=== PATIENT | female | born 1945 | race Caucasian/White ===

== ENCOUNTER 2019-11-05 08:07 | Outpatient (CLI) | payer MEDICARE, SELFPAY ==
[2019-11-05 08:36] LABS: Hematocrit 43.9 % (37.0-47.0); Hemoglobin 14.5 g/dL (12.0-15.0); Mean Corpuscular Hemoglobin 29.3 pg (26-34); Mean Corpuscular Volume 88.7 fl (80-100); Mean Platelet Volume 9.2 fl (7.4-10.4); Platelet Count Result 286 k/mm3 (150-375); Red Blood Count 4.95 M/mm3 (4.2-5.4); Red Cell Distribution Width 12.8 % (11.5-14.5); White Blood Count 3.4 K/mm3 (4.5-10.0)
[2019-11-05 09:44] LABS: Alanine Aminotransferase 17 U/L (4-35); Albumin Level 4.3 g/dL (3.5-5.1); Alkaline Phosphatase 123 U/L (38-126); Anion Gap 11.4 mmol/L (7-16); Aspartate Amino Transferase 21 U/L (14-36); Bilirubin,Total 0.5 mg/dL (0.2-1.3); Blood Urea Nitrogen 17 mg/dL (7-17); Calcium 9.3 mg/dL (8.4-10.2); Carbon Dioxide 26 mmol/L (22-30); Chloride 106 mmol/L (98-107); Cholesterol 218 mg/dL (0-200); Estimated Glomerular Filt Rate > 60; Glucose 117 mg/dL (65-105); HDL Direct 57 mg/dL; Magnesium 2.1 mg/dL (1.6-2.3); Potassium 4.4 mmol/L (3.4-5.0); Sodium 139 mmol/L (137-145); Triglycerides 79 mg/dL (<150)
[2019-11-05 09:55] LABS: LDL Cholesterol Direct 130 mg/dL
[2019-11-05 10:01] LABS: Free T4 Free Thyroxine 1.06 ng/mL (0.78-2.19)
[2019-11-05 10:51] LABS: Folic Acid 7.2 ng/mL (2.76->20)
[2019-11-08 14:40] LABS: Mitochondrial (M2) Ab (IgG) <=20.0 U (<=20.0)
== END 2019-11-05 08:08 | disposition home or self-care (01) ==
LOC: ANHLAB 08:11
PROVIDERS: PCP Internal Medicine; Visit Provider Internal Medicine
DX: R74.8 Abnormal levels of other serum enzymes (principal); R53.83 Other fatigue; I10 Essential (primary) hypertension; E78.00 Pure hypercholesterolemia, unspecified; E03.9 Hypothyroidism, unspecified
CPT/HCPCS: 36415; 80053; 80061; 82607; 82746; 83520; 83735; 84439; 84443; 85027

== ENCOUNTER 2020-05-03 08:56 | Outpatient (CLI) | payer MEDICARE, SELFPAY ==
--- NOTE | ~2020-05-03 | MM_ITS ---
EXAMINATION: MM screening roro BI w chhaya HISTORY: Screening TECHNIQUE: Craniocaudal and mediolateral oblique 3-D tomosynthesis images were obtained and synthetic 2-D images were generated. CAD analysis was submitted and interpreted. COMPARISON: Comparison to multiple prior studies sequentially, with oldest reviewed study dated 02/07. BREAST PARENCHYMAL COMPOSITION: There are scattered areas of fibroglandular density. FINDINGS: There is no evidence of suspicious mass, calcification, or architectural distortion to sugg est malignancy in either breast. There has been no suspicious interval change. IMPRESSION: 1. No mammographic evidence of malignancy. 2. Recommend routine screening mammography in one year. BI-RADS Category 1: Negative Reviewed, dictated and finalized at location A. 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
== END 2020-05-03 08:57 | disposition home or self-care (01) ==
LOC: ANHIMG 09:01
PROVIDERS: PCP Internal Medicine; Visit Provider Obstetrics & Gynecology
DX: Z12.31 Encounter for screening mammogram for malignant neoplasm of breast (principal)
CPT/HCPCS: 77063; 77067

== ENCOUNTER → 2020-08-10 10:21 | Outpatient (CLI) | payer MEDICARE, SELFPAY ==
--- NOTE | ~2020-08-10 | DEXA_ITS ---
Bone Density Report Name: Chanel Márqeuz Age: 75 Sex: Female Ethnicity: White Date of : 1945 Indication: osteopenia; hyperparathyroidism; parental hip fracture; height loss; hysterectomy; postmenopausal Referring Provider: Gita Tran Study: Bone densitometry was performed. Exam Date: August 10, 2020 Accession number: [id number] Bone Density: Region BMD T-score Z-score Classification AP Spine (L1-L4) 0.977 -0.6 1.8 Normal Femoral Neck (Left) 0.822 -0.2 1.8 Normal Total Hip (Left) 0.902 -0.3 1.5 Normal Femoral Neck (Right) 0.710 -1.2 0.8 Osteopenia Total Hip (Right) 0.804 -1.1 0.7 Osteopenia Total Hip Mean 0.853 -0.7 1.1 Normal World Health Organization criteria for BMD impression classify patients as: Normal (T-score at or above -1.0), Osteopenia (T-score between -1.0 and -2.5), or Osteoporosis (T-score at or below -2.5). 10-year Fracture Risk(1): Major Osteoporotic Fracture 15% Hip Fracture 6.3% Reported Risk Factors: [place] (), Neck BMD=0.710, BMI=39.4, parental fracture (1) FRAX(R) Version 3.08. Fracture probability calculated for an untreated patient. Fracture probability may be lower if the patient has received treatment. Previous Exams: Region Exam Age BMD T-score BMD Change BMD Change Date g/cm2 vs Baseline vs Previous AP Spine(L1-L4) 08/10/2020 75 0.977 -0.6 -0.009 -0.039* 05/07/2018 72 1.015 -0.3 0.030 0.064 11/23/2009 64 0.952 -0.9 -0.034* -0.034* 07/06/2004 59 0.985 -0.6 Total Hip(Left) 08/10/2020 75 0.902 -0.3 -0.106 -0.027 05/07/2018 72 0.928 -0.1 -0.080 -0.004 11/23/2009 64 0.933 -0.1 -0.075* -0.075* 07/06/2004 59 1.008 0.5 Total Hip(Right) 08/10/2020 75 0.804 -1.1 -0.117 -0.002 05/07/2018 72 0.805 -1.1 -0.115 -0.046 11/23/2009 64 0.851 -0.7 -0.069* -0.069* 07/06/2004 59 0.920 -0.2 *Denotes significance at 95% confidence level, LSC for AP Spine = 0.022 g/cm2, LSC for Total Hip = 0.027 g/cm2 Clinical Information Provided by Patient: Parent has had a hip fracture Has used the following medications: Vitamin D, Calcium Has the following medical conditions: Hyperparathyroidism, Hysterectomy Patient maximum height was 62 Menopause Age: 59 No regular weight bearing exercise Drinks caffeinated beverages Onset of menses at age 11 Number of children 0
== END ==
PROVIDERS: PCP Internal Medicine; Visit Provider Obstetrics & Gynecology
DX: Z78.0 Asymptomatic menopausal state (principal); M85.851 Other specified disorders of bone density and structure, right thigh
CPT/HCPCS: 77080

== ENCOUNTER 2020-12-16 09:42 | Emergency (ER) | payer OTHER, MEDICARE, SELFPAY ==
--- NOTE | ~2020-12-16 | XR_ITS ---
EXAMINATION: XR wrist LT min 3V, XR forearm LT 2V EXAM DATE: 12/16/2020 10:08 INDICATION: Initial encounter following injury, with pain of the left wrist, forearm. TECHNIQUE: Left forearm frontal and lateral projections obtained and reviewed. 3 projections of the left wrist. There are no prior studies for comparison. FINDINGS: There is an acute closed posttraumatic comminuted fracture through the left radial distal metaphysis extending into the distal radial ulnar joint and the radiocarpal joint. There is posterior angulation and displacement. Carpal bones are unremarkable. 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 IMPRESSION: 1. Acute left radial distal metaphyseal comminuted intra-articular fractures. Reviewed, dictated and finalized at location A. IMPRESSION: 1. Acute left radial distal metaphyseal comminuted intra-articular fractures.
--- NOTE | ~2020-12-16 | XR_ITS ---
EXAMINATION: XR wrist LT 2V INDICATION: Left radius fracture post reduction TECHNIQUE: Two views of the left wrist are obtained. COMPARISON: 1004 hours FINDINGS: The previously described comminuted intra-articular fracture at the distal radius has been reduced. Alignment is near-anatomic. A splint has been applied. There is moderate osteoarthritis of t he triscaphe and first carpometacarpal joints. IMPRESSION: 1. Reduced and splinted comminuted intra-articular fracture of the distal radius Reviewed, dictated and finalized at location B. IMPRESSION: 1. Reduced and splinted comminuted intra-articular fracture of the distal radiu s
[2020-12-16 09:50] VITALS: BP 118/73; PULSE 73; RESP 14; TEMP 35.8; O2SAT 99
[2020-12-16] MEDS: MORPHINE SULFATE (*CRX) 4 MG/ML INJ IV PUSH (12:37)
--- NOTE | 2020-12-16 13:19 | ED.UPPEXIN ---
HPI - Extremity Injury (Upper) General Chief Complaint: Extremity Injury, Upper Stated Complaint: fall with wrist injury Time Seen by Provider: 12/16/20 11:58 History of Present Illness HPI narrative: Patient is 75-year-old female who presents ER with left wrist injury. 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 She then was getting off a chair and fell backwards onto outstretched arm. Sudden onset pain and deformity to the distal wrist. No numbness or tingling. She did not strike her head or lose consciousness. She is not on any blood thinners. Related Data Home Medications Medication Instructions Recorded Confirmed ascorbate calcium (vitamin C) 500 500 mg PO DAILY 11/03/19 07/01/20 mg tablet aspirin 81 mg tablet,delayed 81 mg PO DAILY 11/03/19 07/01/20 release cholecalciferol (vitamin D3) 25 25 mcg PO DAILY 11/03/19 mcg (1,000 unit) capsule cinnamon bark 500 mg capsule 2,000 mg PO DAILY cap 11/03/19 07/01/20 esomeprazole magnesium 40 mg 40 mg PO DAILY 11/03/19 07/01/20 capsule,delayed release omega-3 fatty acids 1,000 mg 1,000 mg PO DAILY 11/03/19 capsule vitamin E (dl, acetate) 180 mg 450 mg PO DAILY 11/03/19 07/01/20 (400 unit) capsule triamcinolone acetonide 0.1 % 1 applic TOPICAL BID 07/01/20 07/01/20 topical cream turmeric 400 mg capsule 1,000 mg PO DAILY cap 07/01/20 07/01/20 Allergies Allergy/AdvReac Type Severity Reaction Status Date / Time ANESTHESIA AdvReac Severe NAUSEA Uncoded 12/16/20 09:55 VOMITING, VITAL SIGNS DROP Review of Systems Review of Systems: All systems reviewed & are unremarkable except as noted in HPI and below Gastrointestinal: Gastrointestinal: Denies nausea and Denies vomiting Musculoskeletal: Musculoskeletal: Reports arthralgias, Reports joint swelling and Reports muscle cramps Neurologic: Denies syncope, Denies headache(s), Denies focal weakness and Denies numbness PMFSH Past Medical History Medical History (Updated 12/16/20 @ 14:40 by Gopi Fishman MD) Diverticulitis Essential (primary) hypertension Hypothyroidism Mitral valve prolapse Surgical History Surgical History (Updated 12/16/20 @ 13:21 by Gopi Fishman MD) History of arthroscopy of right knee History of hysterectomy History of repair of ACL History of tonsillectomy Family History Family History Father Acute myocardial infarction, Onset Age: 63 Patient's father is Grandparent Acute myocardial infarction, Onset Age: 74 Family history of malignant neoplasm of breast, Onset Age: 69 Mother Cerebrovascular accident, Onset Age: 90 Patient's mother is Sibling Acute myocardial infarction Hypertension Patient's sister is in good health Social History Social History Smoking status: Never smoker Second hand tobacco smoke exposure: No Alcohol intake: never Substance use: never Exam Narrative: GENERAL: Well-appearing, well-nourished, and in no acute distress. HEAD: Normocephalic, atraumatic. CHEST: Clear to auscultation. No respiratory distress. HEART: Regular rate and rhythm. Normal peripheral pulses. EXTREMITIES: Deformity left wrist with palpable pulse and neurovascular intact. No tenderness over the elbow. SKIN: Warm, dry, no rash. NEURO: No focal deficits. Alert and oriented x3. PSYCH: Normal mood and affect. Course Course Emergency Course: Discussed the case with Dr. Yoon. He request BMP and CBC as well as EKG for preoperative clearance. He will see her in his clinic on Saturday. She should call at 8:30 AM. Patient be placed in a sling. She is aware of diagnosis and treatment plan. Vital Signs Vital signs: Vital Signs Temperature 96.5 F L 12/16/20 09:50 Pulse Rate 73 12/16/20 09:50 Respiratory Rate 14 12/16/20 09
--- NOTE | 2020-12-16 13:42 | ECG_ITS ---
Measurements Intervals [place] Rate: 66 P: 57 VT: 160 QRS: 29 QRSD: 99 T: 55 QT: 426 QTc: 447 Interpretive Statements SINUS RHYTHM POSSIBLE LEFT ATRIAL ENLARGEMENT CONSIDER INFERIOR INFARCT, AGE INDETERMINATE BASELINE ARTIFACT- I, II, III, AVR, AVL, AVF, V3-V4 ABNORMAL ECG Electronically Signed On 12-16-2020 19:03:46 CDT by Les Odom D.O.
[2020-12-16 14:00] VITALS: BP 187/90; PULSE 68; RESP 18; O2SAT 100
[2020-12-16 15:15] VITALS: BP 182/87; PULSE 65; RESP 16; O2SAT 100
[2020-12-16 15:24] LABS: Basophils Percent Auto 0.3 % (0.2-1.2); Eosinophils Percent Auto 0.5 % (0-4.4); Hematocrit 44.5 % (37.0-47.0); Hemoglobin 14.6 g/dL (12.0-15.0); Immature Granulocyte Absolute 0.03 K/mm3 (0.00-0.031); Immature Granulocyte Percent A 0.3 % (0-0.5); Lymphocytes Absolute Auto 0.92 K/mm3 (0.9-3.2); Lymphocytes Percent Auto 10.5 % (18.3-44.2); Mean Corpuscular HGB Conc 32.8 g/dl (32-36); Mean Corpuscular Hemoglobin 29.7 pg (26-34); Mean Corpuscular Volume 90.6 fl (80-100); Mean Platelet Volume 9.3 fl (7.4-10.4); Monocytes Absolute Auto 0.6 K/mm3 (0.1-0.6); Monocytes Percent Auto 6.4 % (2.6-8.5); Neutrophils Absolute Auto 7.2 K/mm3 (1.3-6.7); Platelet Count Result 293 k/mm3 (150-375); Red Blood Count 4.91 M/mm3 (4.2-5.4); Red Cell Distribution Width 13.2 % (11.5-14.5); White Blood Count 8.8 K/mm3 (4.5-10.0)
[2020-12-16 15:43] LABS: Anion Gap 4 mmol/L (8-16); Blood Urea Nitrogen 16 mg/dL (7-17); Calcium 9.5 mg/dL (8.4-10.2); Carbon Dioxide 24 mmol/L (22-30); Chloride 109 mmol/L (98-107); Estimated CRCL calculation 83 ml/min; Estimated Glomerular Filt Rate > 60; Glucose 125 mg/dL (65-110); Potassium 4.3 mmol/L (3.4-5.0); Sodium 137 mmol/L (137-145)
== END 2020-12-16 15:25 | disposition home or self-care (01) ==
PROVIDERS: Emergency Provider Emergency Medicine; PCP Internal Medicine
DX: S52.572A Other intraarticular fracture of lower end of left radius, initial encounter for closed fracture (principal); Z79.82 Long term (current) use of aspirin; I10 Essential (primary) hypertension; E03.9 Hypothyroidism, unspecified; I34.1 Nonrheumatic mitral (valve) prolapse; W07.XXXA Fall from chair, initial encounter
CPT/HCPCS: 25605; 36415; 73090; 73100; 73110; 80048; 85025; 93005; 96374; 99285; A4565; J2270

== ENCOUNTER 2020-12-21 01:21 | Day surgery (SDC) | payer OTHER, SELFPAY ==
[2020-12-19 11:03] VITALS: BMI 36.6
[2020-12-21] VITALS (10 sets, daily range): BP systolic 110–173; BP diastolic 61–88; PULSE 61–81; RESP 14–20; TEMP 36.3–36.6; O2SAT 94–100
--- NOTE | ~2020-12-21 | XR_ITS ---
EXAMINATION: XR surgery orthopedic DATE: 12/21/2020 15:15 INDICATION: ORIF left wrist fracture TECHNIQUE: 11 fluoroscopic images of the left wrist were obtained during procedure performed by Dr. Max herbert. Radiologist was not present for the imaging or procedure. The amount of fluoroscopy time used during this procedure was 3.4 minutes. COMPARISON: 12/16/2020 FINDINGS: Comminuted intra-articular fracture of the distal left radius with dorsal impaction on the initial im ages. There is some widening of the wrist and midcarpal joint space on the initial images suggesting it was obtained with traction. On the subsequent images the fracture is been reduced to near-anatomic alignment with volar T plate and screw fixation. No significant fracture gap or incongruity with 13 degrees dorsal tilt of the distal articular surface post fixation. No other fractures identified. Ost eoarthritis, moderate at the first carpometacarpal and mild at the triscaphe joint. IMPRESSION: 1. Near-anatomic alignment post open reduction internal fixation of a comminuted intra-articular frac ture of the distal left radius. Reviewed, dictated and finalized at location A. IMPRESSION: 1. Near-anatomic alignment post open reduction internal fixation of a comminute d intra-articular fracture of the distal left radius.
--- NOTE | 2020-12-21 08:25 | PM.IMHP ---
H&P: HPI History of Present Illness Date/Time: 12/21/20 08:25 75-year-old female patient who presents today for ORIF her left distal radius fracture. Patient fell at work on 12/16/2020. She was standing on a chair to reach the top of his safe and when she went to step down her foot got caught causing her to fall. She fell on an outstretched left hand. She had immediate pain in the left wrist. She was taken to the emergency room. She was found have comminuted three-part to the left distal radius fracture. She was seen in the office on 12/19. X-rays reviewed. Patient did undergo closed reduction at the ER which did have some improvement of the overall displacement. However there was still significant displacement as well as comminution. After reviewing x-rays Dr. Yoon recommended ORIF of the left distal radius. Patient agrees and presents today for that. Chief Complaint: left distal radius fracture Review of Systems Review of Systems: All systems reviewed & are unremarkable except as noted in HPI and below PMFSH Past Medical History Medical History Diverticulitis Essential (primary) hypertension Hypothyroidism Mitral valve prolapse Surgical History Surgical History History of arthroscopy of right knee History of hysterectomy History of repair of ACL History of tonsillectomy Family History Family History Father Acute myocardial infarction, Onset Age: 63 Patient's father is Grandparent Acute myocardial infarction, Onset Age: 74 Family history of malignant neoplasm of breast, Onset Age: 69 Mother Cerebrovascular accident, Onset Age: 90 Patient's mother is Sibling Acute myocardial infarction Hypertension Patient's sister is in good health Social History Social History Smoking status: Former smoker Second hand tobacco smoke exposure: No Alcohol intake: never Substance use: never Substance use type: does not use Living arrangements: alone Spiritual care concerns: No Meds Home Medications and Allergies Home Medications Medication Instructions Recorded Confirmed Type ascorbate calcium (vitamin C) 500 500 mg PO DAILY 11/03/19 12/19/20 History mg tablet aspirin 81 mg tablet,delayed 81 mg PO DAILY 11/03/19 12/19/20 History release cholecalciferol (vitamin D3) 25 25 mcg PO DAILY 11/03/19 12/19/20 History mcg (1,000 unit) capsule cinnamon bark 500 mg capsule 2,000 mg PO DAILY cap 11/03/19 12/19/20 History esomeprazole magnesium 40 mg 40 mg PO DAILY 11/03/19 12/19/20 History capsule,delayed release vitamin E (dl, acetate) 180 mg 450 mg PO DAILY 11/03/19 12/19/20 History (400 unit) capsule levothyroxine 25 mcg tablet 25 mcg PO DAILY #30 tablet 07/01/20 12/19/20 Rx turmeric 400 mg capsule 1,000 mg PO DAILY cap 07/01/20 12/19/20 History hydrocodone-acetaminophen 1 tablet PO Q6H PRN #20 tablet 12/16/20 Rx hydrocodone-acetaminophen 1 tablet PO Q6H PRN #20 tablet 12/16/20 12/19/20 Rx For-Til B12 3 tab-cap DAILY 12/19/20 12/19/20 History Ligaplex 2 tab-cap DAILY 12/19/20 12/19/20 History React-Mag-K+ 1 tab-cap DAILY 12/19/20 12/19/20 History furosemide 40 mg PO QAM PRN 12/19/20 12/19/20 History Allergies Allergy/AdvReac Type Severity Reaction Status Date / Time No Known Allergies Allergy Verified 12/19/20 10:55 Exam Narrative: 75-year-old female alert pleasant. She is 5 ft 1 in 201 lb. Fingers are a bit swollen in the left hand. Her splint is comfortable. She reports no numbness or tingling in the fingers. She has normal capillary refill. No tenderness at the elbow or shoulder. Resp: Auscultation: clear to auscultation bilaterally Cardio: Rate: regular rate Rhythm: regular rhythm Assessment
--- NOTE | 2020-12-21 11:28 | WPDANESEPPF ---
Anes - Initial Pre Proc Eval Procedure: Operation Date: 12/21/20 13:00 Proposed Procedures p Open Reduction Internal Fixation Left Distal Radius Fracture - Freddy Yoon MD Date/Time: 12/21/20 11:28 Surgeon: Freddy Yoon MD Pre Op Diagnosis: Left Distal Radius Fx Patient Data Age: 75 Gender: F Height: 1.57 m Weight: 90 kg Allergies Allergy/AdvReac Type Severity Reaction Status Date / Time No Known Allergies Allergy Verified 12/19/20 10:55 Home Medications Medication Instructions Recorded Confirmed Type ascorbate calcium (vitamin C) 500 500 mg PO DAILY 11/03/19 12/19/20 History mg tablet aspirin 81 mg tablet,delayed 81 mg PO DAILY 11/03/19 12/19/20 History release cholecalciferol (vitamin D3) 25 25 mcg PO DAILY 11/03/19 12/19/20 History mcg (1,000 unit) capsule cinnamon bark 500 mg capsule 2,000 mg PO DAILY cap 11/03/19 12/19/20 History esomeprazole magnesium 40 mg 40 mg PO DAILY 11/03/19 12/19/20 History capsule,delayed release vitamin E (dl, acetate) 180 mg 450 mg PO DAILY 11/03/19 12/19/20 History (400 unit) capsule levothyroxine 25 mcg tablet 25 mcg PO DAILY #30 tablet 07/01/20 12/19/20 Rx turmeric 400 mg capsule 1,000 mg PO DAILY cap 07/01/20 12/19/20 History hydrocodone-acetaminophen 1 tablet PO Q6H PRN #20 tablet 12/16/20 Rx hydrocodone-acetaminophen 1 tablet PO Q6H PRN #20 tablet 12/16/20 12/19/20 Rx For-Til B12 3 tab-cap DAILY 12/19/20 12/19/20 History Ligaplex 2 tab-cap DAILY 12/19/20 12/19/20 History React-Mag-K+ 1 tab-cap DAILY 12/19/20 12/19/20 History furosemide 40 mg PO QAM PRN 12/19/20 12/19/20 History Patient hx anesthesia problems: post op nausea/vomiting Family hx anesthesia problems: none PMFSH Past Medical History Medical History Diverticulitis Essential (primary) hypertension Hypothyroidism Mitral valve prolapse Surgical History Surgical History History of arthroscopy of right knee History of hysterectomy History of repair of ACL History of tonsillectomy Family History Family History Father Acute myocardial infarction, Onset Age: 63 Patient's father is Grandparent Acute myocardial infarction, Onset Age: 74 Family history of malignant neoplasm of breast, Onset Age: 69 Mother Cerebrovascular accident, Onset Age: 90 Patient's mother is Sibling Acute myocardial infarction Hypertension Patient's sister is in good health Social History Social History Smoking status: Former smoker Second hand tobacco smoke exposure: No Alcohol intake: never Substance use: never Substance use type: does not use Living arrangements: alone Spiritual care concerns: No Anes - Eval Final PreProcedure Day of Procedure 12/21/20 11:28 Patient weight: obese Heart: regular rate and rhythm Lungs: clear to auscultation Airway: Mallampati scale class II Neurological: alert and oriented Last oral intake: >/= 8 hours ASA classification: III Emergent: no Anesthetic plan: proceed Anesthesia type and monitoring: general LMA and standard monitoring Informed Consent: The patient's anesthetic plan and its attendant risks and benefits were discussed with the patient/family/POA. Questions were solicited and answers provided to the satisfaction of the patient/family/POA.
[2020-12-21] MEDS: LACTATED RINGERS 1,000 ML 30 ML IV CONT (12:05)
[2020-12-21] MEDS: KETOROLAC 15 MG/ML VIAL (*BKC) IV PUSH (12:24)
--- NOTE | 2020-12-21 12:39 | SUR.PREOP ---
1200-SHAVE/SCRUB WITHHELD R/T INSTABILITY OF FX-SPLINT/ZHANE WRAP IN PLACE WITH ARM SLING.
--- NOTE | 2020-12-21 12:47 | WPDHPUPDATE1 ---
History and Physical Update Update Date/Time: 12/21/20 12:47 History and Physical has been reviewed, including an updated exam of the patient. There are NO changes in the patient's condition. Risks, benefits, and alternatives have been discussed and questions answered. Patient agrees to proceed with procedure.
--- NOTE | 2020-12-21 12:47 | WPDANESPNB ---
Anes - Peripheral Nerve Block Date/Time: 12/21/20 12:47 I have discussed with the patient/family/POA the placement of a peripheral nerve block for post-operative pain management, including associated risks, benefits, complications, and side effects. Alternative methods of post-operative analgesia were detailed. Questions were solicited and answers provided to the satisfaction of the patient/family/POA. Time-Out: A pre-procedural Time-Out was completed immediately before starting the procedure and confirmed: Patient Identification, Site, Procedure, Patient Position and the Availability of Requisite Equipment. Clinical Indications: Acute post-operative pain management requested by the operative surgeon. Nerve Block Insertion Note Anes-nerve block: supraclavicular left Patient position: supine Skin prep: chlorhexidine Needle: 22 gauge, stimulating, insulated echogenic needle. Needle length: 80 mm Technique: ultrasound (in plane) Injectate: bupivacaine 0.5% with epi 5 mcg/ml (20cc) Observations: tolerated well Complications: none Procedure start time:: 1250 Procedure end time:: 1255
--- NOTE | 2020-12-21 12:53 | SUR.PREOP ---
1247-DR. HARJINDER GALVIN/BILL WITHHELD--WILL SEND FIGUEROA KHAN TO OR.
[2020-12-21] MEDS: ceFAZolin 2 GM/D5W 50 ML 2 GM/50 ML BAG IVPB (13:12)
[2020-12-21] MEDS: ceFAZolin SODIUM 1 GM VIAL IV PUSH (15:12)
--- NOTE | 2020-12-21 15:42 | P.OP_ITS ---
Procedure Note - Detailed Date of Procedure 12/21/20 Pre-op Diagnosis Left Distal Radius Fx three-part intra-articular left distal radius fracture with metaphyseal comminution. Post-op Diagnosis same Procedure Performed Open reduction internal fixation three-part left intra-articular distal radius fracture with innovation volar locking plate Surgeon Freddy Yoon MD Workforce Staffing Advisor Raquel coleman Anesthesia general Description of Procedure Patient was brought to the operating room and general anesthesia was administered. She received weight based vancomycin 2 g of Ancef preoperatively left arm scrubbed thoroughly with a chlorhexidine cloth and then after drying prepped with DuraPrep incision was marked over the flexor carpi radialis tendon the distal forearm extending just proximal to the distal wrist crease. Fingertrap tractions were of was applied and 15 lb longitudinal traction applied. Tourniquet was elevated to 150 mmHg. A 3-1/2 inch longitudinal incision was made down to the flexor carpi radialis tendon the sheath opened the floor of the sheath opened the flexor pollicis longus retracted ulnarly. There was extensive damage to the distal 1/3 of the pronator quadratus. The proximal 2/3 were longitudinally incised along the radial border of the insertion of the radius and elevated off the volar surface of the distal radial metaphysis. There was fairly extensive volar comminution but the fragments were hinged onto the more distal fragment allowing them to be simply talk back into their proper position. [place] plate was placed on the distal radius stabilized with a K- wire screw placed in the oval screw hole Karo was removed and the plate positioned optimally as far as proximal distal and will distal fragment and the screw tightened and a guide pin placed in the center of the distal part of the plate which coursed 2 mm below the subchondral bone surface of the distal fragments on the lateral view confirming optimal position. Six smooth pins were placed in the distal part of the plate the length of each screw pin 2 mm short of the dorsal metaphyseal bone surface to prevent protrusion. This restored volar tilt radial inclination and radial length and the distal radioulnar joint was congruous. Traction was released and the oval screw was loosened to allow the fracture to impact about a mm so we tightened 2 additional cortical screws placed in the proximal part of the plate and the original screw that was the oval screw was too long and was replaced with a proper length shorter screw. The wound had been irrigated with Ancef solution several times during the case which was repeated this time. We put the tourniquet down at 68 minutes while we were putting in the shaft screws and hemostasis was achieved. The radial artery was in good condition with no bleeding. The pronator quadratus was allowed to rest over the volar surface of the plate and the skin closed with 3-0 subcutaneous Vicryl and glue. EBL was less 25 cc. There were no complications. Dorsal and volar forearm OCL splints were applied for external stabilization and she was transferred to postop recovery room good condition. Implants [place] volar locking plate Estimated Blood Loss 25 Tourniquet Time 68 Drains No Packing No Pathology none sent Complications No immediate complications Condition stable Disposition PACU
== END 2020-12-21 18:00 | disposition home or self-care (01) ==
PROVIDERS: PCP Internal Medicine; Visit Provider Orthopaedic Surgery
PROC: (CPT 25575; principal; 2020-12-21 13:00)
DX: S52.572A Other intraarticular fracture of lower end of left radius, initial encounter for closed fracture (principal); G89.18 Other acute postprocedural pain; W07.XXXA Fall from chair, initial encounter; I10 Essential (primary) hypertension; E03.9 Hypothyroidism, unspecified; I34.1 Nonrheumatic mitral (valve) prolapse; Z79.82 Long term (current) use of aspirin; Z87.891 Personal history of nicotine dependence; E66.9 Obesity, unspecified; Z68.36 Body mass index [BMI] 36.0-36.9, adult
CPT/HCPCS: 25609; 64415; C1713; J0690; J1100; J1885; J2405; J2704; J3010; J3370; J7120

== ENCOUNTER 2021-05-24 08:11 | Outpatient (CLI) | payer MEDICARE, SELFPAY ==
--- NOTE | ~2021-05-24 | MM_ITS ---
EXAMINATION: MM screening roro BI w chhaya HISTORY: Screening TECHNIQUE: Craniocaudal and mediolateral oblique 3-D tomosynthesis images were obtained and synthetic 2-D images were generated. CAD analysis was submitted and interpreted. COMPARISON: 03/02/2015 BREAST PARENCHYMAL COMPOSITION: There are scattered areas of fibroglandular density. FINDINGS: There is no evidence of suspicious mass, calcification, or architectural distortion to sugg est malignancy in either breast. There has been no suspicious interval change. IMPRESSION: 1. No mammographic evidence of malignancy. 2. Recommend routine screening mammography in one year. BI-RADS Category 1: Negative Reviewed, dictated and finalized at location A. 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
== END 2021-05-24 08:12 | disposition home or self-care (01) ==
LOC: ANHIMG 08:13
PROVIDERS: PCP Internal Medicine; Visit Provider Obstetrics & Gynecology
DX: Z12.31 Encounter for screening mammogram for malignant neoplasm of breast (principal)
CPT/HCPCS: 77063; 77067

== ENCOUNTER 2021-07-20 07:07 | Outpatient (CLI) | payer MEDICARE, SELFPAY ==
[2021-07-20 07:29] LABS: Basophils Percent Auto 0.9 % (0.2-1.2); Eosinophils Absolute Auto 0.1 K/mm3 (0-0.3); Eosinophils Percent Auto 2.6 % (0-4.4); Hemoglobin 15.3 g/dL (12.0-15.0); Immature Granulocyte Absolute 0.01 K/mm3 (0.00-0.031); Immature Granulocyte Percent A 0.2 % (0-0.5); Lymphocytes Absolute Auto 1.14 K/mm3 (0.9-3.2); Lymphocytes Percent Auto 24.3 % (18.3-44.2); Mean Corpuscular HGB Conc 32.6 g/dl (32-36); Mean Corpuscular Hemoglobin 29.3 pg (26-34); Mean Corpuscular Volume 89.9 fl (80-100); Mean Platelet Volume 9.3 fl (7.4-10.4); Monocytes Absolute Auto 0.5 K/mm3 (0.1-0.6); Monocytes Percent Auto 9.6 % (2.6-8.5); Neutrophils Absolute Auto 2.9 K/mm3 (1.3-6.7); Neutrophils Percent Auto 62.4 % (45.5-73.1); Platelet Count Result 291 k/mm3 (150-375); Red Blood Count 5.23 M/mm3 (4.2-5.4); Red Cell Distribution Width 13.2 % (11.5-14.5); White Blood Count 4.7 K/mm3 (4.5-10.0)
[2021-07-20 07:40] LABS: Alanine Aminotransferase 21 U/L (4-35); Albumin Level 4.7 g/dL (3.5-5.1); Alkaline Phosphatase 145 U/L (38-126); Anion Gap 8 mmol/L (8-16); Aspartate Amino Transferase 24 U/L (14-36); Bilirubin,Total 0.8 mg/dL (0.2-1.3); Blood Urea Nitrogen 17 mg/dL (7-17); Calcium 9.2 mg/dL (8.4-10.2); Carbon Dioxide 24 mmol/L (22-30); Chloride 106 mmol/L (98-107); Cholesterol 225 mg/dL (0-200); Estimated Glomerular Filt Rate > 60; Glucose 141 mg/dL (65-110); HDL Direct 59 mg/dL; Potassium 4.4 mmol/L (3.4-5.0); Sodium 138 mmol/L (137-145); Triglycerides 91 mg/dL (<150)
[2021-07-20 07:50] LABS: LDL Cholesterol Direct 124 mg/dL
[2021-07-20 08:01] LABS: Free T4 Free Thyroxine 1.06 ng/mL (0.78-2.19)
[2021-07-20 08:46] LABS: Folic Acid 5.8 ng/mL (2.76->20)
== END 2021-07-20 07:08 | disposition home or self-care (01) ==
LOC: ANHLAB 07:13
PROVIDERS: PCP Internal Medicine; Visit Provider Internal Medicine
DX: R53.83 Other fatigue (principal); E78.49 Other hyperlipidemia; E03.9 Hypothyroidism, unspecified
CPT/HCPCS: 36415; 80053; 80061; 82607; 82746; 84439; 84443; 85025

== ENCOUNTER 2022-01-22 07:10 | Outpatient (CLI) | payer MEDICARE, SELFPAY ==
[2022-01-22 08:13] LABS: Basophils Absolute Auto 0.1 K/mm3 (0.0-0.1); Basophils Percent Auto 1.2 % (0.2-1.2); Eosinophils Absolute Auto 0.1 K/mm3 (0-0.3); Eosinophils Percent Auto 3.4 % (0-4.4); Hematocrit 46.6 % (37.0-47.0); Hemoglobin 15.2 g/dL (12.0-15.0); Immature Granulocyte Absolute 0.01 K/mm3 (0.00-0.031); Immature Granulocyte Percent A 0.2 % (0-0.5); Lymphocytes Absolute Auto 0.94 K/mm3 (0.9-3.2); Lymphocytes Percent Auto 22.9 % (18.3-44.2); Mean Corpuscular HGB Conc 32.6 g/dl (32-36); Mean Corpuscular Hemoglobin 29.5 pg (26-34); Mean Corpuscular Volume 90.3 fl (80-100); Mean Platelet Volume 9.6 fl (7.4-10.4); Monocytes Absolute Auto 0.4 K/mm3 (0.1-0.6); Monocytes Percent Auto 9.5 % (2.6-8.5); Neutrophils Absolute Auto 2.6 K/mm3 (1.3-6.7); Neutrophils Percent Auto 62.8 % (45.5-73.1); Platelet Count Result 287 k/mm3 (150-375); Red Blood Count 5.16 M/mm3 (4.2-5.4); Red Cell Distribution Width 13.1 % (11.5-14.5); White Blood Count 4.1 K/mm3 (4.5-10.0)
[2022-01-22 08:26] LABS: Alanine Aminotransferase 24 U/L (6-35); Albumin Level 4.4 g/dL (3.5-5.1); Alkaline Phosphatase 143 U/L (38-126); Anion Gap 8 mmol/L (8-16); Aspartate Amino Transferase 22 U/L (14-36); Bilirubin,Total 0.7 mg/dL (0.2-1.3); Blood Urea Nitrogen 16 mg/dL (7-17); Calcium 9.4 mg/dL (8.4-10.2); Carbon Dioxide 23 mmol/L (22-30); Chloride 107 mmol/L (98-107); Cholesterol 240 mg/dL (0-200); Estimated Glomerular Filt Rate > 60; Glucose 138 mg/dL (65-110); HDL Direct 63 mg/dL; Potassium 3.9 mmol/L (3.4-5.0); Sodium 138 mmol/L (137-145); Triglycerides 87 mg/dL (<150)
[2022-01-22 08:36] LABS: LDL Cholesterol Direct 136 mg/dL
[2022-01-22 08:59] LABS: Hemoglobin A1C 6.5 % (<5.7)
[2022-01-22 09:30] LABS: Folic Acid 9.8 ng/mL (2.76->20)
[2022-01-26 08:42] LABS: Mitochondrial (M2) Ab (IgG) <=20.0 U (<=20.0)
== END 2022-01-22 07:11 | disposition home or self-care (01) ==
PROVIDERS: PCP Internal Medicine; Visit Provider Internal Medicine
DX: E78.49 Other hyperlipidemia (principal); R73.9 Hyperglycemia, unspecified; E03.9 Hypothyroidism, unspecified; R74.8 Abnormal levels of other serum enzymes; R53.83 Other fatigue
CPT/HCPCS: 36415; 80053; 80061; 82607; 82746; 83036; 83520; 84443; 85025

== ENCOUNTER 2022-03-20 01:12 | Day surgery (SDC) | payer MEDICARE, SELFPAY ==
[2022-03-08 15:07] VITALS: BMI 36.8
[2022-03-20 07:55] VITALS: BP 171/79; PULSE 91; RESP 18; TEMP 36.2; O2SAT 91
[2022-03-20] MEDS: LACTATED RINGERS 1,000 ML 150 ML IV CONT (08:09)
--- NOTE | 2022-03-20 08:20 | PM.HPGS ---
History of Present Illness History of Present Illness Consent: Risks, benefits, and alternatives have been discussed and questions answered. Patient agrees to proceed with procedure. Chief complaint: hx of colon polyp Narrative: Chanel Márquez is a 76 year old female Presents for screening colonoscopy. Patient's current weight appetite and bowel movements are normal. She denies abdominal pain. She has had no bleeding. Family history noncontributory. Patient reports many years ago she may have had a colon polyp. [facility] Past Medical History Medical History Diverticulitis Essential (primary) hypertension Hypothyroidism Mitral valve prolapse Surgical History Surgical History History of arthroscopy of right knee History of hysterectomy History of repair of ACL History of tonsillectomy Family History Family History Father Acute myocardial infarction, Onset Age: 63 Patient's father is Grandparent Acute myocardial infarction, Onset Age: 74 Family history of malignant neoplasm of breast, Onset Age: 69 Mother Cerebrovascular accident, Onset Age: 90 Patient's mother is Sibling Acute myocardial infarction Hypertension Patient's sister is in good health Social History Social History (Updated 01/30/22 @ 10:08 by Hilda Johnson MA) Smoking status: Former smoker Second hand tobacco smoke exposure: No Alcohol intake: current Substance use: never Substance use type: does not use Lack of Transportation: No Lack of Food: Never True Current Housing: I Have Housing Concerned About Future Housing: No Difficulty Paying Gas/Electric Bills: No Difficulty Paying for Meds: No Currently Unemployed: No Education: Associate Degree Difficulty w/ Childcare or Family Care: No Spiritual care concerns: No Meds Home Medications and Allergies Home Medications Medication Instructions Recorded Confirmed Type aspirin 81 mg tablet,delayed 81 mg PO DAILY 11/03/19 03/08/22 History release (Adult Low Dose Aspirin) cinnamon bark 500 mg capsule 2,000 mg PO DAILY 11/03/19 03/08/22 History (Cinnamon) vitamin E (dl, acetate) 180 mg 450 mg PO DAILY 11/03/19 03/08/22 History (400 unit) capsule Ligaplex 2 tab-cap DAILY 12/19/20 03/08/22 History ascorbate calcium (vitamin C) 500 900 mg PO DAILY 01/23/21 03/08/22 History mg tablet cholecalciferol (vitamin D3) 25 2,000 unit PO DAILY 01/23/21 03/08/22 History mcg (1,000 unit) capsule levothyroxine 25 mcg tablet 25 mcg PO DAILY #90 tabs 07/26/21 03/20/22 Rx furosemide 40 mg tablet 40 mg PO QAM 01/30/22 03/08/22 History omega [id number] oil 600 1 cap PO DAILY 01/30/22 03/08/22 History mg-20 mg-500 mcg-800 mcg capsule (CardioVid PLUS) sodium,potassium,mag sulfates 17.5 See Rx Instructions PO .COMPLEX 02/05/22 03/08/22 Rx gram-3.13 gram-1.6 gram oral soln #354 mL (Suprep Bowel Prep Kit) Congaplex 2 cap PO DAILY 03/08/22 03/08/22 History calcium carbonate 600 mg-vitamin 1 tablet PO DAILY 03/08/22 03/08/22 History D3 5 mcg (200 unit) tablet Allergies Allergy/AdvReac Type Severity Reaction Status Date / Time anesthesia Allergy Severe Other Uncoded 03/20/22 07:52 Vital Signs Vital Signs - 24 hr 03/20/22 07:55 Temperature 97.2 F L Pulse Rate 91 Respiratory Rate 18 Blood Pressure 171/79 H Pulse Oximetry 91 Oxygen Delivery Room Air Exam Narrative: Physical exam reveals patient to be alert. Vital signs stable. HEENT exam is unremarkable. Patient is anicteric. Lungs are clear to auscultation and percussion. Heart is without murmur or extra sounds. Abdomen bowel sounds are present soft nontender with no organomegaly. Digital external rectal exam is normal. Assessment and Plan Asse
[2022-03-20] MEDS: ONDANSETRON INJ 4 MG/2 ML VIAL IV PUSH (08:48)
[2022-03-20 09:17] VITALS: BP 122/71; PULSE 86; RESP 20; O2SAT 97
[2022-03-20 09:27] VITALS: BP 114/59; PULSE 80; RESP 20; O2SAT 99
[2022-03-20 09:37] VITALS: BP 125/76; PULSE 78; RESP 20; O2SAT 100
== END 2022-03-20 09:49 | disposition home or self-care (01) ==
PROVIDERS: PCP Internal Medicine; Visit Provider Internal Medicine Gastroenterology
PROC: 0DJD8ZZ Inspection of Lower Intestinal Tract, Via Natural or Artificial Opening Endoscopic (ICD-10-PCS; CPT 45378; principal; 2022-03-20 09:00)
DX: Z12.11 Encounter for screening for malignant neoplasm of colon (principal); D12.2 Benign neoplasm of ascending colon; K64.8 Other hemorrhoids; K57.30 Diverticulosis of large intestine without perforation or abscess without bleeding; I10 Essential (primary) hypertension; E03.9 Hypothyroidism, unspecified; I34.1 Nonrheumatic mitral (valve) prolapse; Z87.891 Personal history of nicotine dependence; Z79.82 Long term (current) use of aspirin
CPT/HCPCS: 45385; 88305; J2405; J2704; J7120

== ENCOUNTER 2022-07-13 08:16 | Outpatient (CLI) | payer MEDICARE, SELFPAY ==
--- NOTE | ~2022-07-13 | MM_ITS ---
EXAMINATION: MM screening [facility] BI w chhaya HISTORY: Screening TECHNIQUE: Craniocaudal and mediolateral oblique 3-D tomosynthesis images were obtained and synthetic 2-D images were generated. CAD analysis was submitted and interpreted. COMPARISON: Comparison to multiple prior studies sequentially, with oldest reviewed study dated 02/08. BREAST PARENCHYMAL COMPOSITION: Breast composed of scattered areas of fibroglandular density FINDINGS: Stable benign-appearing subareolar nodules of the right breast. Stable right breast asymmet macario in the upper outer quadrant. There is no evidence of suspicious mass, calcification, or architec tural distortion to suggest malignancy in either breast. There has been no suspicious interval change . IMPRESSION: 1. No mammographic evidence of malignancy. 2. Recommend routine screening mammography in one year. BI-RADS Category 1: Negative Reviewed, dictated and finalized at location A.
== END 2022-07-13 08:17 | disposition home or self-care (01) ==
LOC: ANHIMG 08:17
PROVIDERS: PCP Internal Medicine; Visit Provider Obstetrics & Gynecology
DX: Z12.31 Encounter for screening mammogram for malignant neoplasm of breast (principal)
CPT/HCPCS: 77063; 77067

== ENCOUNTER 2022-09-06 07:14 | Outpatient (CLI) | payer MEDICARE, SELFPAY ==
[2022-09-06 07:44] LABS: Basophils Absolute Auto 0.1 K/mm3 (0.0-0.1); Basophils Percent Auto 1.2 % (0.2-1.2); Eosinophils Absolute Auto 0.1 K/mm3 (0-0.3); Eosinophils Percent Auto 3.2 % (0-4.4); Hematocrit 43.7 % (37.0-47.0); Hemoglobin 14.3 g/dL (12.0-15.0); Immature Granulocyte Absolute 0.01 K/mm3 (0.00-0.031); Immature Granulocyte Percent A 0.2 % (0-0.5); Lymphocytes Absolute Auto 0.96 K/mm3 (0.9-3.2); Lymphocytes Percent Auto 23.9 % (18.3-44.2); Mean Corpuscular HGB Conc 32.7 g/dl (32-36); Mean Corpuscular Hemoglobin 28.9 pg (26-34); Mean Corpuscular Volume 88.5 fl (80-100); Monocytes Absolute Auto 0.4 K/mm3 (0.1-0.6); Neutrophils Absolute Auto 2.5 K/mm3 (1.3-6.7); Neutrophils Percent Auto 61.5 % (45.5-73.1); Platelet Count Result 284 k/mm3 (150-375); Red Blood Count 4.94 M/mm3 (4.2-5.4); Red Cell Distribution Width 13.2 % (11.5-14.5)
[2022-09-06 07:57] LABS: Alanine Aminotransferase 20 U/L (6-35); Albumin Level 4.5 g/dL (3.5-5.1); Alkaline Phosphatase 130 U/L (38-126); Anion Gap 8 mmol/L (8-16); Aspartate Amino Transferase 21 U/L (14-36); Bilirubin,Total 0.8 mg/dL (0.2-1.3); Blood Urea Nitrogen 16 mg/dL (7-17); Calcium 9.1 mg/dL (8.4-10.2); Carbon Dioxide 24 mmol/L (22-30); Chloride 107 mmol/L (98-107); Cholesterol 202 mg/dL (0-200); Estimated Glomerular Filt Rate > 60; Glucose 123 mg/dL (65-110); HDL Direct 63 mg/dL; Lactate Dehydrogenase 132 U/L (120-246); Potassium 4.1 mmol/L (3.4-5.0); Sodium 139 mmol/L (137-145); Triglycerides 96 mg/dL (<150)
[2022-09-06 07:58] LABS: Hemoglobin A1C 6.1 % (<5.7)
[2022-09-06 08:07] LABS: LDL Cholesterol Direct 118 mg/dL
[2022-09-06 08:18] LABS: Free T4 Free Thyroxine 1.03 ng/mL (0.78-2.19)
[2022-09-06 09:01] LABS: Folic Acid 8.6 ng/mL (2.76->20)
== END 2022-09-06 07:15 | disposition home or self-care (01) ==
PROVIDERS: PCP Internal Medicine; Visit Provider Internal Medicine
DX: D72.819 Decreased white blood cell count, unspecified (principal); E03.9 Hypothyroidism, unspecified; R53.83 Other fatigue; R73.9 Hyperglycemia, unspecified; E78.49 Other hyperlipidemia
CPT/HCPCS: 36415; 80053; 80061; 82607; 82746; 83036; 83615; 84439; 84443; 85025

== ENCOUNTER 2022-10-15 10:09 | Outpatient (CLI) | payer MEDICARE, SELFPAY | END 2022-10-15 10:10 | disposition home or self-care (01) | LOC: ANHAUDIO 10:09 | PROVIDERS: PCP Internal Medicine; Visit Provider Otolaryngology | DX: H90.3 Sensorineural hearing loss, bilateral (principal); H69.91 Unspecified Eustachian tube disorder, right ear | CPT/HCPCS: 92557; 92567 ==

== ENCOUNTER → 2022-10-31 10:18 | Outpatient (CLI) | payer MEDICARE, SELFPAY ==
--- NOTE | ~2022-10-31 | DEXA_ITS ---
Bone Density Report Name: AIDA GUPTA Age: 77 Sex: Female Ethnicity: White Date of : 1945 Indication: osteopenia; hyperparathyroidism; parental hip fracture; height loss; prior fracture; hysterectomy; Referring Provider: Gita Tran Study: Bone densitometry was performed. Exam Date: October 31, 2022 Accession number: [id number] Bone Density: Region BMD T-score Z-score Classification AP Spine (L1-L4) 0.952 -0.9 1.7 Normal Femoral Neck (Left) 0.861 0.1 2.3 Normal Total Hip (Left) 0.902 -0.3 1.6 Normal Femoral Neck (Right) 0.797 -0.5 1.7 Normal Total Hip (Right) 0.806 -1.1 0.8 Osteopenia Total Hip Mean 0.854 -0.7 1.2 Normal World Health Organization criteria for BMD impression classify patients as: Normal (T-score at or above -1.0), Osteopenia (T-score between -1.0 and -2.5), or Osteoporosis (T-score at or below -2.5). 10-year Fracture Risk(1): Major Osteoporotic Fracture 18% Hip Fracture 6.0% Reported Risk Factors: [place] (), Neck BMD=0.797, BMI=39.9, previous fracture, parental fracture (1) FRAX(R) Version 3.08. Fracture probability calculated for an untreated patient. Fracture probability may be lower if the patient has received treatment. Previous Exams: Region Exam Age BMD T-score BMD Change BMD Change Date g/cm2 vs Baseline vs Previous AP Spine(L1-L4) 10/31/2022 77 0.952 -0.9 -0.034 -0.025* 08/10/2020 75 0.977 -0.6 -0.009 -0.039* 05/07/2018 72 1.015 -0.3 0.030 0.064 11/23/2009 64 0.952 -0.9 -0.034* -0.034* 07/06/2004 59 0.985 -0.6 Total Hip(Left) 10/31/2022 77 0.902 -0.3 -0.106 0.001 08/10/2020 75 0.902 -0.3 -0.106 -0.027 05/07/2018 72 0.928 -0.1 -0.080 -0.004 11/23/2009 64 0.933 -0.1 -0.075* -0.075* 07/06/2004 59 1.008 0.5 Total Hip(Right) 10/31/2022 77 0.806 -1.1 -0.114 0.003 08/10/2020 75 0.804 -1.1 -0.117 -0.002 05/07/2018 72 0.805 -1.1 -0.115 -0.046 11/23/2009 64 0.851 -0.7 -0.069* -0.069* 07/06/2004 59 0.920 -0.2 *Denotes significance at 95% confidence level, LSC for AP Spine = 0.022 g/cm2, LSC for Total Hip = 0.027 g/cm2 Clinical Information Provided by Patient: Has had a low trauma fracture Parent has had a hip fracture Has used the following medications: Vitamin D Has t
== END ==
PROVIDERS: PCP Internal Medicine; Visit Provider Obstetrics & Gynecology
DX: Z78.0 Asymptomatic menopausal state (principal); M85.851 Other specified disorders of bone density and structure, right thigh
CPT/HCPCS: 77080

== ENCOUNTER 2022-11-07 00:37 | Day surgery (SDC) | payer MEDICARE, SELFPAY ==
[2022-10-30 13:22] VITALS: BMI 38.1
--- NOTE | 2022-10-30 13:47 | PC.NURSE ---
Report to the Outpatient Waiting Room, entrance under the green pavilion located off [facility], at time __6:00AM on date __11/07/22 . Planned Procedure Time: __7:30AM . Time changes happen often and if your time is changed the preop area will call you the afternoon before. - You and your visitor will be asked to self-screen and do not enter if you have any COVID symptoms. - A mask is optional within the hospital at this time. Patients may have clear liquids (water, carbonated beverages, clear teas, apple juice) until 3 hours prior to surgery with a maximum of 20 ounces. - No food from midnight until time of surgery Take the following medications with a SIP of water the morning of surgery: ___DOXYCYCLINE, LEVOTHYROXINE DO NOT STOP ANY OF YOUR OTHER PRESCRIPTION MEDICATIONS PRIOR TO SURGERY ?EXCEPT THE FOLLOWING Medications to discontinue per physician __HOLD ALL VITAMINS/SUPPLEMENTS 3 DAYS PRE-OP PER ANESTHESIA Date to take last dose____11/03/22 Please no make-up, nail mongolian, hairspray, perfume, deodorant, or body powder the day of surgery. No jewelry (including any body piercings) or valuables the day of surgery, leave them at home. Please take a shower or bath the night before, or the morning of, surgery with an antibacterial soap. Wear comfortable, loose fitting clothing. Children are encouraged to wear pajamas. - Jewelry must be removed prior to entering the operating room. Rings and piercings that are not removed may be cut off. - The hospital will not accept responsibility for valuables. - Please leave all valuables, including medications, at home the day of surgery. If you are going home after surgery, a licensed catering driver must drive you home. - NO public transportation without another adult if you receive anesthesia. - We recommend that an adult stay with you for 24 hours following discharge. - We also recommend that you do not drive, make important decision, drink alcoholic beverages, or take any drugs that were not prescribed by your health care provider for at least 24 hours after your discharge time. Follow any additional instructions given to you from your surgeon. If you or anyone in your household have experienced Covid symptoms in the past week, please notify your surgeon or the nurse liaison at the phone number below for possible testing. Telephone instructions given to _PATIENT___and asked if any additional questions and then verbalized understanding. Patient advised to call surgeon office or pre surgery nurse liaison [phone] if any additional questions.
--- NOTE | 2022-11-06 14:09 | WPDANESEPPF ---
Anes - Initial Pre Proc Eval Procedure: Operation Date: 11/07/22 07:30 Proposed Procedures p Hysteroscopy, Dilation and Curettage - Gita Tran MD Date/Time: 11/06/22 14:09 Surgeon: Gita Tran MD Pre Op Diagnosis: atypical glanular cells on pap smear Patient Data Age: 77 Gender: F Height: 1.56 m Weight: 93 kg Allergies Allergy/AdvReac Type Severity Reaction Status Date / Time ANESTHESIA AGENT AdvReac HYPOTENSION, Uncoded 10/30/22 13:50 LOW HEART RATE Home Medications Medication Instructions Recorded Confirmed Type aspirin 81 mg tablet,delayed 81 mg PO HS 11/03/19 10/30/22 History release (Adult Low Dose Aspirin) cinnamon bark 500 mg capsule 3,000 mg PO DAILY 11/03/19 10/30/22 History (Cinnamon) vitamin E (dl, acetate) 180 mg 180 mg PO DAILY 11/03/19 10/30/22 History (400 unit) capsule Ligaplex 2 tab-cap PO DAILY 12/19/20 10/30/22 History cholecalciferol (vitamin D3) 25 1,500 unit PO DAILY 01/23/21 10/30/22 History mcg (1,000 unit) capsule furosemide 40 mg tablet 40 mg PO QAM PRN Urinary Retention 01/30/22 10/30/22 History clobetasol 0.05 % scalp solution 1 applic topical BID 09/10/22 10/30/22 History Biocell Salts 2 spry PO DAILY 10/30/22 10/30/22 History Catalyn 3 tab-cap PO DAILY 10/30/22 10/30/22 History Collagen Powder 30 ml PO QAM 10/30/22 10/30/22 History doxycycline hyclate 100 mg capsule 100 mg PO QAM 10/30/22 10/30/22 History levothyroxine 25 mcg tablet 25 mcg PO QAM 10/30/22 10/30/22 History losartan 25 mg tablet 25 mg PO QAM 10/30/22 10/30/22 History minerals 1 tablet PO DAILY 10/30/22 10/30/22 History Patient hx anesthesia problems: post op nausea/vomiting Family hx anesthesia problems: none Results Review: All pre-operative results and documents have been reviewed as part of the pre-operative evaluation. [facility] Past Medical History Medical History (Updated 11/06/22 @ 14:10 by Allen Ying DO) Diverticulitis Essential (primary) hypertension GERD (gastroesophageal reflux disease) Hypothyroidism Mitral valve prolapse PONV (postoperative nausea and vomiting) Surgical History Surgical History History of arthroscopy of right knee History of hysterectomy History of repair of ACL History of tonsillectomy Family History Family History (Updated 10/01/22 @ 11:[address] [facility]) Father Acute myocardial infarction, Onset Age: 63 Patient's father is Hypertension Heart disease Grandparent Acute myocardial infarction, Onset Age: 74 Family history of malignant neoplasm of breast, Onset Age: 69 Mother Cerebrovascular accident, Onset Age: 90 Patient's mother is Hypertension Heart disease Sibling Acute myocardial infarction Hypertension Patient's sister is in good health Sibling Diabetes mellitus Hypertension Heart disease Grandparent Heart disease Social History Social History Smoking status: Never smoker Second hand tobacco smoke exposure: No Alcohol intake: current Substance use: never Substance use type: does not use Lack of Transportation: No Lack of Food: Never True Current Housing: I Have Housing Concerned About Future Housing: No Difficulty Paying Gas/Electric Bills: No Difficulty Paying for Meds: No Currently Unemployed: No Education: Associate Degree Difficulty w/ Childcare or Family Care: No Living arrangements: alone Spiritual care concerns: No Anes - Eval Final PreProcedure Day of Procedure 11/06/22 14:09 Patient weight: obese Heart: regular rate and rhythm Lungs: clear to auscultation Airway: Mallampati scale class II Neurological: alert and oriented Last oral intake: >/= 8 hours ASA classification: III Emergent: no Anesthetic plan: proceed Anesthesia type and monitoring: general GIVS
[2022-11-07] MEDS: ACETAMINOPHEN 500 MG TABLET 1000 MG PO (06:24)
[2022-11-07 06:29] VITALS: BP 176/64; PULSE 92; RESP 16; TEMP 36.6; O2SAT 98
[2022-11-07] MEDS: LACTATED RINGERS 1,000 ML 30 ML IV CONT (06:53)
--- NOTE | 2022-11-07 07:13 | WPDHPUPDATE1 ---
History and Physical Update Update Date/Time: 11/07/22 07:13 History and Physical has been reviewed, including an updated exam of the patient. There are NO changes in the patient's condition. Risks, benefits, and alternatives have been discussed and questions answered. Patient agrees to proceed with procedure.
[2022-11-07 08:05] VITALS: BP 117/59; PULSE 76; RESP 17; O2SAT 98
--- NOTE | 2022-11-07 08:20 | W.PM.PROC2 ---
Procedure Note - Detailed Date of Procedure 11/07/22 Pre-op Diagnosis atypical glanular cells on pap smear Post-op Diagnosis Same Procedure Performed Hysteroscopy D&C Surgeon Gita Tran MD Anesthesia MAC Indications abnormal uterine bleeding Findings Normal appearing endometrium and endocervix, normal vulva, vagina, cervix. Description of Procedure the patient was taken the operating room. She was prepped and draped in the dorsal lithotomy position after induction of mac anesthesia. A speculum was placed in the vagina. The cervix was grasped with a tenaculum. The cervix was dilated about 1 cm. The hysteroscope was inserted. The intrauterine cavity and endocervix were evaluated. Hysteroscope was withdrawn. A medium-size curette was used to curettage all the surfaces were within the endometrial cavity. the sample was collected on Telfa and sent to pathology. The hysteroscope was reinserted and the above findings were noted. Patient tolerated the procedure well. The speculum and tenaculum were removed. She was taken recovery room in stable condition. Sponge lap and needle counts were correct x2. Estimated Blood Loss 40 Drains No Packing No Pathology Yes Complications No immediate complications Condition Stable Disposition PACU
[2022-11-07 08:30] VITALS: BP 135/66; PULSE 74; RESP 16
[2022-11-07 09:00] VITALS: BP 149/62; PULSE 67; RESP 14
--- NOTE | 2022-12-04 09:21 | PM.IMHP ---
H&P: HPI History of Present Illness Date/Time: 12/04/22 09:21 Chief Complaint: Abnormal Pap smear Narrative: 77-year-old female with RITU Pap. She evaluate endocervical canal and endometrium with hysteroscopic evaluation. To sample all areas. We have agreed to perform hysteroscopy D&C. We discussed risks in great detail. Review of Systems Review of Systems: All systems reviewed & are unremarkable except as noted in HPI and below Constitutional: Constitutional: Denies chills, Denies fatigue, Denies fever(s) and Denies weakness Eyes: Eyes: Denies blurry vision, Denies change in vision, Denies loss of peripheral vision, Denies loss of vision, Denies other visual disturbances and Denies eye pain ENT: Denies vertigo, Denies dizziness, Denies hearing loss, Denies mouth pain, Denies nasal obstruction, Denies neck mass and Denies neck pain Cardiovascular: Cardiovascular: Denies chest pain, Denies diaphoresis, Denies syncope, Denies leg edema and Denies dyspnea Respiratory: Respiratory: Denies chest congestion, Denies cough, Denies hemoptysis, Denies dyspnea and Denies wheezing Gastrointestinal: Gastrointestinal: Denies abdominal pain, Denies constipation, Denies diarrhea, Denies nausea and Denies vomiting Genitourinary: Genitourinary: Denies hematuria, Denies change in libido, Denies nocturia, Denies genital lesions, Denies flank pain and Denies urinary urgency Musculoskeletal: Musculoskeletal: Denies abnormal gait, Denies back pain, Denies myalgias, Denies arthralgias, Denies joint swelling, Denies muscle weakness and Denies neck pain Integumentary/Breasts: Skin/Breast: Denies swelling, Denies breast pain, Denies breast mass, Denies dry skin, Denies nipple discharge, Denies unusual bruising and Denies jaundice Neurologic: Denies Neuro-related abnormal movements, Denies Abnormal speech present, Denies abnormal gait, Denies behavioral changes, Denies confusion, Denies vertigo, Denies dizziness, Denies syncope, Denies loss of vision, Denies memory loss, Denies convulsions and Denies weakness Psychiatric: Psychiatric: Denies abnormal sleep pattern, Denies behavioral changes, Denies change in libido, Denies confusion, Denies depression, Denies anhedonia and Denies memory loss Endocrine: Endocrine: Reports no additional endocrine complaints, Denies change in libido and Denies fatigue Hematologic/Lymphatic: Hematologic/Lymphatic: Reports no additional hematologic/lymphatic complaints Allergic/Immunologic: Allergic/Immunologic: Reports no additional allergic/immunologic complaints and Denies wheezing PMFSH Past Medical History Medical History (Updated 12/04/22 @ 09:22 by Gita Tran MD) Diverticulitis Essential (primary) hypertension GERD (gastroesophageal reflux disease) Hypothyroidism Mitral valve prolapse PONV (postoperative nausea and vomiting) Surgical History Surgical History History of arthroscopy of right knee History of hysterectomy History of repair of ACL History of tonsillectomy Family History Family History (Updated 10/01/22 @ 11:[address] [facility]) Father Acute myocardial infarction, Onset Age: 63 Patient's father is Hypertension Heart disease Grandparent Acute myocardial infarction, Onset Age: 74 Family history of malignant neoplasm of breast, Onset Age: 69 Mother Cerebrovascular accident, Onset Age: 90 Patient's mother is Hypertension Heart disease Sibling Acute myocardial infarction Hypertension Patient's sister is in good health Sibling Diabetes mellitus Hypertension Heart disease Grandparent Heart disease Social History Social History Smoking status: Never smoker Second hand tobacco smoke exposure: No Alcohol intake: current Substance use: never Substance use type: does not use Lack of Transp
== END 2022-11-07 09:41 | disposition home or self-care (01) ==
PROVIDERS: PCP Internal Medicine; Visit Provider Obstetrics & Gynecology
PROC: 0U5B8ZZ Destruction of Endometrium, Via Natural or Artificial Opening Endoscopic (ICD-10-PCS; CPT 58563; principal; 2022-11-07 07:30)
DX: R87.619 Unspecified abnormal cytological findings in specimens from cervix uteri (principal); I10 Essential (primary) hypertension; E03.9 Hypothyroidism, unspecified; K21.9 Gastro-esophageal reflux disease without esophagitis; I34.1 Nonrheumatic mitral (valve) prolapse; Z79.82 Long term (current) use of aspirin; E66.9 Obesity, unspecified; Z68.38 Body mass index [BMI] 38.0-38.9, adult
CPT/HCPCS: 58558; 88305; A9270; J2250; J2704; J7120

== ENCOUNTER 2023-07-30 08:26 | Outpatient (CLI) | payer MEDICARE, SELFPAY ==
--- NOTE | ~2023-07-30 | MM_ITS ---
EXAMINATION: MM screening [facility] BI w chhaya HISTORY: Screening mammogram TECHNIQUE: Craniocaudal and mediolateral oblique 3-D tomosynthesis images were obtained and synthetic 2-D images were generated. CAD analysis was submitted and interpreted. COMPARISON: July 13, 2022, May 24, 2021, 05/03/2020 bilateral screening mammogram examinations BREAST PARENCHYMAL COMPOSITION: There are scattered areas of fibroglandular density. FINDINGS: There is no evidence of suspicious mass, calcification, or architectural distortion to sugg est malignancy in either breast. There has been no suspicious interval change. IMPRESSION: 1. No mammographic evidence of malignancy. 2. Recommend routine screening mammography in one year. BI-RADS Category 1: Negative Reviewed, dictated and finalized at location A.
== END 2023-07-30 08:27 | disposition home or self-care (01) ==
LOC: ANHIMG 08:28
PROVIDERS: PCP Internal Medicine; Visit Provider Obstetrics & Gynecology
DX: Z12.31 Encounter for screening mammogram for malignant neoplasm of breast (principal)
CPT/HCPCS: 77063; 77067

== ENCOUNTER 2023-12-06 07:02 | Outpatient (CLI) | payer MEDICARE, SELFPAY ==
[2023-12-06 07:59] LABS: Basophils Absolute Auto 0.1 K/mm3 (0.0-0.1); Basophils Percent Auto 1.1 % (0.2-1.2); Eosinophils Absolute Auto 0.1 K/mm3 (0-0.3); Eosinophils Percent Auto 3.1 % (0-4.4); Hematocrit 46.8 % (37.0-47.0); Hemoglobin 15.3 g/dL (12.0-15.0); Immature Granulocyte Absolute 0.02 K/mm3 (0.00-0.031); Immature Granulocyte Percent A 0.4 % (0-0.5); Lymphocytes Absolute Auto 1.15 K/mm3 (0.9-3.2); Lymphocytes Percent Auto 25.8 % (18.3-44.2); Mean Corpuscular HGB Conc 32.7 g/dl (32-36); Mean Corpuscular Hemoglobin 29.4 pg (26-34); Mean Platelet Volume 9.7 fl (7.4-10.4); Monocytes Absolute Auto 0.5 K/mm3 (0.1-0.6); Monocytes Percent Auto 10.1 % (2.6-8.5); Neutrophils Absolute Auto 2.7 K/mm3 (1.3-6.7); Neutrophils Percent Auto 59.5 % (45.5-73.1); Platelet Count Result 320 k/mm3 (150-375); Red Cell Distribution Width 14.4 % (11.5-14.5); White Blood Count 4.5 K/mm3 (4.5-10.0)
[2023-12-06 08:17] LABS: Alanine Aminotransferase 18 U/L (6-35); Albumin Level 4.7 g/dL (3.5-5.1); Alkaline Phosphatase 139 U/L (38-126); Anion Gap 11 mmol/L (4-12); Aspartate Amino Transferase 24 U/L (14-36); Bilirubin,Total 0.8 mg/dL (0.2-1.3); Blood Urea Nitrogen 23 mg/dL (7-17); Calcium 9.5 mg/dL (8.4-10.2); Carbon Dioxide 25 mmol/L (22-30); Chloride 103 mmol/L (98-107); Cholesterol 220 mg/dL (0-200); Estimated Glomerular Filt Rate > 60; Glucose 126 mg/dL (65-110); HDL Direct 71 mg/dL; Magnesium 2.2 mg/dL (1.6-2.3); Potassium 4.2 mmol/L (3.4-5.0); Sodium 139 mmol/L (137-145); Triglycerides 80 mg/dL (<150)
[2023-12-06 08:27] LABS: LDL Cholesterol Direct 113 mg/dL
[2023-12-06 08:37] LABS: Hemoglobin A1C 6.2 % (<5.7)
[2023-12-06 09:19] LABS: Folic Acid 6.8 ng/mL (2.76->20)
[2023-12-06 09:51] LABS: Free T4 Free Thyroxine 0.96 ng/mL (0.78-2.19)
[2023-12-16 14:47] LABS: Mitochondrial (M2) Ab (IgG) <20.0 U
== END 2023-12-06 07:03 | disposition home or self-care (01) ==
LOC: ANHLAB 07:08
PROVIDERS: PCP Nurse Practitioner; Visit Provider Physician Assistant
DX: R53.83 Other fatigue (principal); E78.49 Other hyperlipidemia; D72.819 Decreased white blood cell count, unspecified; E03.9 Hypothyroidism, unspecified; I10 Essential (primary) hypertension; R73.9 Hyperglycemia, unspecified; R74.8 Abnormal levels of other serum enzymes
CPT/HCPCS: 36415; 80053; 80061; 82607; 82746; 83036; 83520; 83735; 84439; 84443; 85025

== ENCOUNTER 2024-02-10 09:50 | Outpatient (CLI) | payer MEDICARE, SELFPAY ==
--- NOTE | 2024-02-10 09:59 | ECHO_ITS ---
Patient Info Name: Chanel Márquez Age: 78 years : 1945 Gender: Female Ht: 61 in Wt: 202 lbs BSA: 2.03 m2 HR: 76 bpm BP: 164 / 81 mmHg Technical Quality: Fair Exam Date: 02/10/2024 10:16 AM Exam Location: Echo Lab Patient Status: Outpatient Admit Date: 02/10/2024 Staff Ordering Physician: Kai Martinez APRN Non Destructive Testing Specialist: Coleen Palomo RDCS Attending Provider: Kai Martinez APRN Referring Physician: Juan HANNA; Exam Type: CA echo doppler color flow Study Info Indications R01.1 - Cardiac murmur, unspecified Complete two-dimensional, color flow and Doppler transthoracic echocardiogram is performed. Strain analysis performed. Summary 1. Complete two-dimensional, color flow and Doppler transthoracic echocardiogram is performed. 2. Left ventricular chamber dimension is normal. 3. Left ventricular systolic function is normal, estimated at 65-70%. 4. The left ventricular diastolic function is grade I diastolic dysfunction. 5. E/e' 19 is elevated. 6. Global longitudinal strain is normal at -17.5%. 7. Left atrial chamber dimension is mildly enlarged. 8. There is mild aortic valve sclerosis. 9. The mitral valve has mildly calcified leaflets. 10. There is trace mitral valve regurgitation. 11. There is trace tricuspid valve regurgitation. 12. No pulmonary hypertension, estimated pulmonary arterial systolic pressure is 32 mmHg. Left Ventricle E/e' 19 is elevated. Global longitudinal strain is normal at -17.5%. Left ventricular chamber dimension is normal. Left ventricular systolic function is normal, estimated at 65-70%. The left ventricular diastolic function is grade I diastolic dysfunction. Right Ventricle Right ventricular chamber dimension is normal. Right ventricular systolic function is normal. Left Atria Left atrial chamber dimension is mildly enlarged. Right Atria Right atrial chamber dimension is normal. Aortic Valve The aortic valve is trileaflet. There is mild aortic valve sclerosis. There is no aortic valve stenosis. There is no aortic valve regurgitation. Pulmonic Valve There is no pulmonic regurgitation. Mitral Valve The mitral valve has mildly calcified leaflets. There is no mitral valve stenosis. There is trace mitral valve regurgitation. Tricuspid Valve There is trace tricuspid valve regurgitation. No pulmonary hypertension, estimated pulmonary arterial systolic pressure is 32 mmHg. Pericardium/Pleural There is no pericardial effusion. Inferior Vena Cava Normal inferior vena cava with >50% collapse upon inspiration consistent with normal right atrial pressure, 5 mmHg. Aorta The aortic root size at the sinus of Valsalva is normal. Left Ventricular Outflow Tract Name Value Normal LVOT 2D LVOT Diameter 1.9 cm LVOT Doppler LVOT Peak Gradient 5 mmHg LVOT Mean Gradient 3 mmHg LVOT VTI 25 cm LVOT VTI/AV VTI Ratio 0.6 LVOT Stroke Volume 70 ml LVOT CO 5.2 l/min LVOT CI 2.6 l/min/m2 Pulmonic Valve Name Value Normal RVOT Doppler RVOT Peak Gradient 2 mmHg PV Doppler PV Peak Gradient 4 mmHg Mitral Valve Name Value Normal MV Doppler MV Decel Parker 580 cm/s2 MV PHT 58 ms MV Area (PHT) 3.8 cm2 4.0-5.0 MV Diastolic Function MV E Peak Velocity 116 cm/s MV A Peak Velocity 118 cm/s MV E/A 1.0 MV Decel Time 199 ms Tricuspid Valve Name Value Normal TV Regurgitation Doppler TR Peak Velocity 258 cm/s TR Peak Gradient 27 mmHg Estimated PAP/RSVP RA Pressure 5 mmHg <=5 PA Systolic Pressure 32 mmHg <36 RV Systolic Pressure 32 mmHg <36 Aorta Name Value Normal Ascending Aorta Ao Root Diameter (MM) 2.5 cm Ao Root Diam Index (MM) 1.2 cm/m2 Aortic Valve Name Value Normal AV Doppler AV Peak Velocity 174 cm/s AV Peak Gradient 12 mmHg AV Mean Gradient 8 mmHg AV VTI 40 cm AV Area (Cont Eq VTI) 1.8 cm2 >=3.0 AV Area (Cont Eq Bandar) 1.8 cm2 AV Regurgitation 2D LVOT Area 2.8 cm2 Ventricles Name Value Normal LV Dimensions 2D/MM IVS Diastolic Thickness (2D) 0.8 cm 0.6-1.0 IVS Diastole Thickness (MM) 0.8 cm 0.6-0.9 LVID Diastole (2D) 4.4 cm 3.8-5.2 LVID Diastole (MM) 4.7 cm 3.8-5.2 LVIW Diastolic Thickness (2D) 0.9 cm 0.6-0.9 LVIW Diastolic Thickness (MM) 1.1 cm 0.6-0.9 LVID Systole (2D) 2.7 cm 2.2-3.5 LVID Systole (MM) 2.5 cm 2.2-3.5 LVOT Diameter 1.9 cm LV Mass (2D Cubed) 119.72 g 67.00-162.00 LV Mass Index (2D Cubed) 59 g/m2 43-95 Relative Wall Thickness (2D) 0.41 LV Mass (MM Cubed) 149.02 g 67.00-162.00 LV Mass Index (MM Cubed) 73 g/m2 43-95 Relative Wall Thickness (MM) 0.47 LV Fractional Shortening/Ejection Fraction 2D/MM LV Fractional Shortening (2D) 40 % 27-45 LV Fractional Shortening (MM) 47 % 27-45 LV EF (MM Teicholz) 78 % 54-74 LV EF (2D Teicholz) 71 % 54-74 LV Diastolic Volume (4C MOD) 79 ml LV EF (4C MOD) 71 % LV Diastolic Volume (2C MOD) 85 ml LV EF (2C MOD) 73 % LV Diastolic Volume (BP MOD) 83 ml 46-106 LV Diastolic Volume Index (BP MOD) 41 ml/m2 29-61 LV Systolic Volume (BP MOD) 23 ml 14-42 LV Systolic Volume Index (BP MOD) 11 ml/m2 8-24 LV EF (BP MOD) 72 % 54-74 LV Diastolic Length (4C) 7.6 cm LV Systolic Length (4C) 5.7 cm LV Stroke Volume (4C MOD) 56 ml Atria Name Value Normal LA Dimensions LA Dimension (MM) 3.6 cm 2.7-3.8 LA Volume (4C A-L) 45 ml LA Volume (BP A-L) 51 ml RA Dimensions RA Area (4C) 12.2 cm2 <=18.0 EchoPAC Name Value Normal AutoEF LVCO_BiP_Q (Yorp6VNC) 4.7 l/min LVEF_BiP_Q (Qlva2SIQ) 64 % LVSV_BiP_Q (Cnfk9ZYU) 63 ml LVVED_BiP_Q (Gdok5VYG) 98 ml LVVES_BiP_Q (Fkqv5QRO) 35 ml HR_4Ch_Q (Oqyg4VPD) 78 bpm LVCO_4Ch_Q (Vzov5RLB) 3.9 l/min LVEF_4Ch_Q (Zxph9DBC) 59 % LVLd_4Ch_Q (Bamq5RLW) 7.6 cm LVLs_4Ch_Q (Fqfk7HGG) 6.3 cm LVSV_4Ch_Q (Eunv7IJV) 51 ml LVVED_4Ch_Q (Egwx7XWQ) 86 ml LVVES_4Ch_Q (Xyqq7AQS) 35 ml HR_2Ch_Q (Fbek8SBW) 74 bpm LVCO_2Ch_Q (Erqt4PNH) 5.6 l/min LVEF_2Ch_Q (Mpci7VQU) 68 % LVLd_2Ch_Q (Lfci3SHV) 7.2 cm LVLs_2Ch_Q (Hfes3SOX) 5.9 cm LVSV_2Ch_Q (Powj8NMP) 75 ml LVVED_2Ch_Q (Qtts1VWQ) 111 ml LVVES_2Ch_Q (Iajr8HBE) 35 ml JOHN AA peak sys SL (AWMA) 14.3 % AAS peak sys SL (AWMA) 23.3 % AI peak sys SL (AWMA) 28.1 % AL peak sys SL (AWMA) 18.1 % AP peak sys SL (AWMA) 17.1 % peak sys SL (AWMA) 31.1 % AVC (AWMA) 398 ms BA peak sys SL (AWMA) 14.8 % BAS peak sys SL (AWMA) 12.6 % BI peak sys SL (AWMA) 20.6 % BL peak sys SL (AWMA) 15.2 % BP peak sys SL (AWMA) 10.0 % BS peak sys SL (AWMA) 9.1 % G peak SL(A2C) (AWMA) 19.4 % G peak SL(A4C) (AWMA) 17.3 % G peak SL(APLAX) (AWMA) 15.8 % G peak SL(Avg) (AWMA) 17.5 % MA peak sys SL (AWMA) 10.7 % MAS peak sys SL (AWMA) 19.8 % DE peak sys SL (AWMA) 29.9 % ML peak sys SL (AWMA) 11.5 % MP peak sys SL (AWMA) 13.2 % MS peak sys SL (AWMA) 20.7 % Report Signatures
== END 2024-02-10 09:51 | disposition home or self-care (01) ==
PROVIDERS: PCP Internal Medicine; Visit Provider Nurse Practitioner
DX: I08.0 Rheumatic disorders of both mitral and aortic valves (principal); R01.1 Cardiac murmur, unspecified; Z12.11 Encounter for screening for malignant neoplasm of colon
CPT/HCPCS: 93306

== ENCOUNTER 2024-06-23 07:33 | Outpatient (CLI) | payer MEDICARE, SELFPAY ==
--- OUTSIDE RECORDS SUMMARY | 2024-06-23 07:37 | XMS_ITS | Clinical Summary ---
Author Organization [facility] Address [address] [place] [id number] Care Team Providers Care Alignment Mechanic Name Role Phone Unavailable Primary Care Provider Unavailabl e Social History Tobacco Use Types Packs/Day Years Used Date Smoking Tobacco: Never Assessed Comments Unknown Sex and Gender Information Value Date Recorded Sex Assigned at Not on file Legal Sex Female 5:15 PM CDT Gender Identity Not on file Sexual Orientation Not on file Plan of Treatment Health Maintenance Due Date Last Done Comments Hepatitis C 06/16/1963 DTaP, Tdap and Td Vaccines ( 1 - Tdap) 1964 Zoster Vaccines (1 of 2) 06/16/1995 Dexa Scan (General) 2010 Pneumococcal Vaccine: 65+ Ye ars (1 of 1 - PCV) 2010 RSV Immunization or 60+ Years (1 - 1-dose 75+ series) 2020 COVID-19 Vaccine (2023-2 5 season) 2023 Influenza Adult (#1) 2024 Meningococcal B Vaccine Aged Out No l onger eligible based on patient's age to complete this topic Meningococcal Vaccine Aged Out No starr amie eligible based on patient's age to complete this topic RSV Immunizations Under 20 Months Aged Out No longer eligible based on patient's age to complete this topic
--- OUTSIDE RECORDS SUMMARY | 2024-06-23 07:37 | XMS_ITS | Referral Summary ---
Author Organization [facility] Address [address] [place] [address] Care Team Providers Care Powerhouse Mechanic Name Role Phone JesusBarron DO Primary Care Provider [phone] Source Comments [facility],non-owned Affiliates and Associated Physician Practices is amultiple site organization consisting of ambulatory clinics and hospital sitesin [place], [place], [place] and [place]. This disclosure is being madepursuant to the Care Everywhere program and may not contain all information available regarding this patient. Last updated 17.[facility] Allergies Active Allergy Reactions Criticality Noted Date Comments Propofol Nausea and/or Vomiting,Other Medium 018 Vitals changes Medications * Be aware that medications may not be up to date on this document. Alwaysverify current medications with the patient. Medication Sig Dispensed Refills Start Date End Date Status aspirin (ASPIRIN) 81 MG tablet Take 1 (one) tablet by mouth once daily Active furosemide (LASIX) 40 MG tablet Take 1 (one) tablet by mouth as directed Active levothyroxine (SYNTHROID) 25 MCG tablet Take 1 (one) tablet by mouth once daily 11 12/20/2017 Active vitamin E (TOCOPHERYL) 400 UNIT capsule Take 1 (one) capsule by mouth once daily Active ascorbic acid (VITAMIN C) 500 MG tablet Take 1 (one) tablet by mouth once daily Active Cholecalciferol (VITAMIN D3) 972384 UNIT/GM Take 1 tablet by mouth once daily Active CINNAMON PO Take 1,500 mg by mouth once daily Active losartan (Cozaar) 25 MG tablet Take 1 (one) tablet by mouth once daily 03/06/2023 Active doxycycline hyclate (Vibramycin) 100 MG capsuleIndications: Frontal fibrosing alopecia Take 1 (one) capsule by mouth daily with food 90 capsule 1 04/02/2023 Active clobetasol (Temovate) 0.05 % solutionIndications :Frontal fibrosing alopecia Apply to affected areas of frontal scalp once daily. 30 day supply. 50 mL 5 04/02/2023 Active prednisoLONE acetate (Pred Forte) 1 % ophthalmic suspension Instill 1 (one) drop into left eye 3 times daily 10/02/2023 Active prednisoLONE acetate (Pred Forte) 1 % ophthalmic suspension Instill 1 (one) drop into right eye 4 times daily 01/22/2024 Active nepafenac (Nevanac) 0.1 % ophth suspension Instill 1 drop into right eye 4 times daily 01/22/2024 Active moxifloxacin (Vigamox) 0.5 % ophthalmic solution Instill 1 (one) drop into right eye 4 times daily 01/22/2024 Active OtherIndications:DS AP (disseminated superficial actinic porokeratosis) Cholesterol 2% combined with Lovastatin 2% in a cream applied to affected lesions on the arms and legs daily. 30 day supply. 60 g 11 03/10/2024 Active Active Problems Problem Noted Date Diagnosed Date Blurred vision 08/08/2022 Cataract 08/08/2022 Dry eye 08/08/2022 PVD (posterior vitreous detachment), left eye Heart murmur 08/08/2022 Hearing loss 08/08/2022 Disorder of thyroid 08/08/2022 Rheumatoid arthritis 08/08/2022 Fatigue 08/08/2022 Primary osteoarthritis of left knee 09/20/2021 Actinic skin damage 07/24/2021 Actinic keratoses 07/24/2021 Venous stasis dermatitis of both lower extremiti es 03/21/2020 Assessment & Plan (09/20/2020 9:35 AM CDT): - Stable - Encouraged compression stocking use, leg elevation - okay to hold TAC cream BID. - Start calcipotriene cream BID AA PRN (for concomitant DSAP) Seborrheic keratoses, inflamed 03/21/2020 Disseminated superficial actinic porokeratosis 1 05/22/2019 Assessment & Plan (03/07/2021 10:01 AM PRODUCT LISTER): - fluorouracil (EFUDEX) 5 % cream; Apply to affected area on legs twice daily for six weeks. Counseled patient on diagnosis, etiology, disease course and treatment options. Discussed management nature. No cure. Discussed intention to treat now so hopefully there will be less lesions in the summer and less symptomatic. Start efudex bid for 6 wks. SE discussed. Photo reviewed. 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 (FLUAD QUADRIVALENT; 65Y+) (AIIV4) 01/15/2020 INFLUENZA VACCINE, CELL CULT URE, QUADR. (FLUCELVAX QUADRIVALENT; 6MO+) (CCIIV4) 01/16/2019 Pneumococcal Pcv13 Conj 01/17/2016 Zoster Hzv Vacc Recombinant Inj Im 03/17/2019, Social History Tobacco Use Types Packs/Day Years Used Date Smoking Tobacco: Never Smokeless Tobacco: Never Alcohol Use Standard Drinks/Week Comments Not Currently 0 (1 standard drink = 0.6 oz pur e alcohol) socially Sex and Gender Information Value Date Recorded Sex Assigned at Not on file Gender Identity Not on file Sexual Orientation Not on file Last Filed Vital Signs Vital Sign Reading Time Taken Comments Blood Pressure 156/65 01/21/2024 9:30 AM CDT Pulse 74 01/21/2024 9:30 AM CDT Temperature 36.3 C (97.3 F) 01/21/2024 9:20 AM CDT Respiratory Rate 18 01/21/2024 9:30 AM CDT Oxygen Saturation 100% 01/21/2024 9:30 AM CDT Inhaled Oxygen Concentration - - Weight 90.7 kg (200 lb) 01/21/2024 6:50 AM CDT Height 157.5 cm (5' 2 ) 01/21/2024 6:50 AM CDT Body Mass Index 36.58 01/21/2024 6:50 AM CDT Plan of Treatment Not on file Medical Devices Implanted Type Area Chief I Dispatcher Device Identifier Shelf Expiration Date Model / Serial / Lot Clareon 20.5d Implanted:Qty: 1 on 09/24/2023 by Alvaro Lott MD at [facility] Left: Eye [employer] 12/31/2026 [id number] . 5D / [id number] Clareon Uv Iol [id number] +20.0d Implanted:Qty: 1 on 01/21/2024 by Alvaro Lott MD at [facility] Right: Eye [employer] 01/06/2027 [id number] +20.0D / [id number] / NA Care Teams Powerhouse Mechanic Relationship Specialty Start Date End Date Barron Lee DO [address] [facility] [address] [place] [address] PCP - General Internal Medicine 03/10/24
--- OUTSIDE RECORDS SUMMARY | 2024-06-23 07:37 | XMS_ITS | Clinical Summary ---
Author Organization [facility] Address [address] [place] [id number] Care Team Providers Care Carpet Repairer Name Role Phone Kayden Velez MD Primary Care Provider [phone] Allergies Active Allergy Reactions Criticality Noted Date Comments Propofol Unknown 02/25/2018 Vitals Medications FLUZONE HIGH-DOSE , PF, 180 mcg/0.5 mL syringe ADM 0.5ML IM UTD 0 8 Active levothyroxine (SYNTHROID, LEVOTHROID) 25 mcg tablet 8 Active furosemide (LASIX) 40 mg tablet Take 40 mg by mouth 2 (two) times a day. Active esomeprazole DR (NexIUM) 20 mg capsule Take 20 mg by mouth daily before breakfast. Active aspirin 81 mg tablet Take 81 mg by mouth daily. Active cinnamon bark 500 mg capsule Take 500 mg by mouth daily. Active amphotericin B liposomal (AMBISOME) 50 mg injection Active multivit with min-folic acid 200 mcg tablet,chewable Take by mouth. Active cholecalciferol, vitamin D3, (cholecalciferol , vit D3,,bulk,) 100,000 unit/gram powder Take 1 tablet by mouth daily Active vitamin A and D3 in cod liver oil (cod liver oil) 1,250-135 unit capsule Take 1 tablet by mouth daily Active nutritional supplements 0.03-1 gram-kcal/mL liquid Take by mouth Active vitamin E 100 unit/0.25 mL drops Take 1 capsule by mouth daily Active ascorbic acid (ascorbic acid) 500 mg tablet,chewable Take 500 mg by mouth daily Active psyllium (METAMUCIL) 3.4 gram packet Take by mouth Acti ve triamcinolone (KENALOG) 0.1 % cream Apply to bilateral legs twice daily as needed for up to 2 wks per mo for stasis dermatitis. 30 days supply. 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 Vitreous degeneration 02/26/2013 Surgical History Surgery Date Site/Laterality Comments KNEE SURGERY acl replacement 1997 CARPAL TUNNEL RELEASE both hands 1992 Medical History Medical History Date Comments Thyroid disease Gastric reflux Family History Medical History Relation Name Comments Arthritis Neg Hx Cancer Neg Hx Diabetes Neg Hx Heart disease Neg Hx Hypertension Neg Hx Stroke Neg Hx Social History Tobacco Use Types Packs/Day Years Used Date Smoking Tobacco: Never Smokeless Tobacco: Never Alcohol Use Standard Drinks/Week Comments No 0 (1 standard drink = 0.6 oz pur e alcohol) Personal Safety Answer Date Recorded Getting School Help Needed Not on file 05/28 Comments Unknown Sex and Gender Information Value Date Recorded Sex Assigned at Not on file Legal Sex Female 8:51 AM BOBBIN DISKER Gender Identity Not on file Sexual Orientation Not on file Obstetrics History Last Filed Vital Signs Vital Sign Reading Time Taken Comments Blood Pressure 163/78 08/31/2020 8:57 AM CDT Pulse 77 08/31/2020 8:57 AM CDT Temperature - - Respiratory Rate - - Oxygen Saturation - - Inhaled Oxygen Concentration - - Weight 92.4 kg (203 lb 12.8 oz) 08/31/2020 8:57 AM CDT Height 156.2 cm (5' 1.5 ) 08/31/2020 8:57 AM CDT Body Mass Index 37.88 08/31/2020 8:57 AM CDT Plan of Treatment Not on file Insurance MEDICARE [employer] Care Teams Carpet Repairer Relationship Specialty Start Date End Date Kayden Velez MD [address] [facility] [address] [place] [address] PCP - General Internal Medicine 02/20/18
--- OUTSIDE RECORDS SUMMARY | 2024-06-23 07:37 | XMS_ITS | Data Portability ---
Author Organization [facility] [place] Address [address] [place] [address] [place] [address] Care Team Providers Care Boat Dispatcher Name Role Phone RIVAS BAILEY Primary Care Provider [phone] Assessment No assessment recorded. Plan of Treatment Reminders Order Date Submit Date Provider Last Modified By Organization Details Last Modified Time Details Appointments [facility] 2024 08:30A Sandra TRAN MD Not available Not available Not available Lab None recorded. Referral None recorded. Procedures None recorded. Surgeries dilation and curettage with hysterosc opy (SURG) 2022 023 [facility], [address], [place], [address], 11/07/2022 09:24:27 Imaging US, pelvis 2022 023 [email or web address] [place], [address], [place], [address], 09/25/2022 12:08:53 US, transvagi nal 2022 023 [email or web address] [place], [address], [place], [address], 09/25/2022 12:08:53 Medication Orders None recorded. Patient TargetsNo targets recorded. Patient InstructionsNo instructions recorded. Reason for Referral None Reported. Results Created Date Observation Date Name Description Value Unit Range Abnormal Flag Note LastModifiedBy Organization Detail LastModifiedTime 09/25/19 23 09/24/2022 US, pelvi s No observ ation record ed. [facility] [address], [place], [address], 09/24/2022 12:56:40 09/25/19 23 09/24/2022 US, trans vagin al No observ ation record ed. [facility] [address], [place], [address], 09/24/2022 12:56:56 09/25/19 23 09/24/2022 US, pelvi s No observ ation record ed. [email or web address] [address], [place], [address], 09/24/2022 22:17:52 11/01/19 23 10/31/2022 bone densi ty No observ ation record ed. [place], [place], [address], 11/01/2022 10:48:32 07/30/19 24 07/30/2023 imagi ng/di agnos tic resul t No observ ation record ed. [facility] [address], [place], [address], 08/05/2023 17:17:10 Result Notes None recorded. 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 1 15:18:43 Cyst of ovary Active 2018 Unspecifi ed ovarian cyst, unspecifi ed side;Tera rded Elsewhere : No Locati on: [facility] So urce: EHR Chron ic: N Practic e ID: [id number] Bill able Time: 08:30:00 AM Not Available [facility] 16:[facility] Concept Completed 201906/14/2020 Encntr for general adult medical exam w/o abnormal findings; Recorded Elsewhere : No Locati on: [facility] So urce: EHR Chron ic: N Practic e ID: [id number] Bill able Time: 01:15:00 PM Milena gonzalez [facility] 15:18:45 Problem Notes None recorded. Procedures Surgical History Date Name Laterality Status Provider Name and Address Organization Details Recorded Time 11/08/19 23 DILATION AND CURETTAGE WITH HYSTEROSCOPY (SURG) completed Sarah Lynn [facility] 11/08/2022 10:34:03 09/08/19 23 Colposcopy completed Carlo Tran MD [address], [place], [address], [facility] 09/07/2022 11:51:24 08/04/19 23 Date of Last Pap Smear completed [facility] 09/07/2022 11:04:04 07/14/19 23 Date of Last Mammogram completed [facility] 07/14/2022 09:59:53 03/20/20 22 completed [facility] 08/03/2022 12:40:55 03/20/20 22 Date of Last Colonoscopy completed [facility] 08/03/2022 12:40:55 05/03/19 21 Most Recent Bone Density completed [facility] 06/14/2020 15:18:08 04/08/19 21 completed [facility] 06/14/2020 15:29:02 uterine myomectomy completed [facility] 09/07/2022 12:05:52 Tonsillectomy completed [facility] 06/14/2020 15:18:18 Ovarian Cystectomy completed [facility] 06/14/2020 15:18:18 Colonoscopy completed [facility] 06/14/2020 15:18:18 Orthopedic Surgery completed [facility] 06/14/2020 15:18:18 reconstruction of anterior cruciate ligament of knee joint completed [facility] 06/14/2020 15:27:41 Carpal tunnel surgery completed [facility] 06/14/2020 15:28:07 Imaging Results Imaging Date Name Status LastModified by Organization Details LastModified Time 09/24/2022 US, pelvis completed deanna Kuo [address], [place], [address], 09/24/2022 12:56:40 09/24/2022 US, transvaginal completed deanna varma [address], [place], [address], 09/24/2022 12:56:56 09/24/2022 US, pelvis completed [email or web address] [address], [place], [address], 09/24/2022 22:17:52 10/31/2022 bone density completed [address] [facility] [address] [facility], [place], [address], 11/01/2022 10:48:32 07/30/2023 imaging/diagnost ic result completed [facility] [address], [place], [address], 08/05/2023 17:17:10 Procedure Notes None recorded. Medical Equipment None Reported. Allergies No known drug allergies Medications Name Sig Start Date Stop Date Status Note LastModified by Organization Details LastModified Time doxycycli ne hyclate 100 mg capsule TAKE 1 CAPSULE BY MOUTH TWICE A DAY active Not Available Not Available No t Available cod liver oil capsule 08/03 completed Prescrib ed Elsewher e: Yes [facility] odify By: dary Varma ncounter DateTime : 05/05/19 19 08:30:00 AM Not Available Not Available Not Available vitamin E 100 unit capsule 2018 active Prescrib ed Elsewher e: Yes Loca tion: [facility] odify By: dary Varma ncounter DateTime : 05/05/19 19 08:30:00 AM Not Available Not Available Not Available levothyro xine 25 mcg tablet TAKE 1 TABLET BY MOUTH EVERY DAY active Not Available Not Available No t Available Nexium 20 mg capsule,d elayed release take 1 capsule by oral route every day at least 1 hour before a meal swallowi ng whole. Do not crush or chew granules . 08/03 completed Prescrib ed Elsewher e: Yes Loca tion: Archana avani [facility] odify By: dary Varma ncounter DateTime : 05/05/19 19 08:30:00 AM Not Available Not Available Not Available Vitamin C 1,000 mg tablet 2018 active Prescrib ed Elsewher e: Yes [facility] odify By: dary Varma ncounter DateTime : 05/05/19 19 08:30:00 AM Not Available Not Available Not Available losartan 25 mg tablet TAKE 1 TABLET BY MOUTH EVERY DAY active Not Available Not Available No t Available furosemid e 20 mg tablet take 1 tablet by oral route every day 2018 active Prescrib ed Elsewher e: Yes Loca tion: Archana varma [facility] odify By: dary maxwell DateTime : 05/05/19 19 08:30:00 AM Not Available Not Available Not Available clobetaso l 0.05 % scalp solution APPLY TO AFFECTED AREAS TWICE DAILY NEEDED FOR RASH active Not Available Not Available No t Available magnesium 30 mg tablet active Prescrib ed Elsewher e: Yes Loca tion: Archana varma [facility] odify By: irish wolff DateTime : 05/06/19 20 01:15:00 PM Not Available Not Available Not Available Cinnamon 500 mg capsule 2018 active Prescrib ed Elsewher e: Yes Loca tion: Archana varma [facility] odify By: dary andradeunturiel DateTime : 05/05/19 19 08:30:00 AM Not Available Not Available Not Available Vitamin D3 10 mcg (400 unit) capsule 2018 active Prescrib ed Elsewher e: Yes Loca tion: Archana varma [facility] odify By: dary maxwell DateTime : 05/05/19 19 08:30:00 AM Not Available Not Available Not Available Suprep Bowel Prep Kit 17.5 gram-3.13 gram-1.6 gram oral solution MIX BOTTLES AND DRINK BEFORE COLONOSC OPY DIRECTED BY PHYSICIA N'S INSTRUCT IONS active Not Available Not Available No t Available olive leaf extract 250 mg capsule 05/06 completed Prescrib ed Elsewher e: Yes Loca tion: Archana varma [facility] odify By: irish wolff DateTime : 05/05/19 19 08:30:00 AM Not Available Not Available Not Available turmeric root extract 500 mg capsule 08/03 completed Not Available Not Available Not Available Rhonda Chewable Low Dose Aspirin 81 mg tablet chew 1 tablet by oral route every day 2018 active Prescrib ed Elsewher e: Yes Loca tion: Archana varma [facility] odify By: dary andradeunturiel DateTime : 05/05/19 19 08:30:00 AM Not Available Not Available Not Available Vitals Date Recorded Body height Body mass index (BMI) Body weight Systolic blood pressure Diastolic blood pressure Provider Name and Address Organization Details Last Updated DateTime 09/07/2022 154.94 cm 38.9 kg/m2 84815.03 g 171 mm[Hg] 77 mm[Hg] Milena [facility] 3 11:03:36 Date Recorded Body height Body mass index (BMI) Body weight Systolic blood pressure Diastolic blood pressure Provider Name and Address Organization Details Last Updated DateTime 09/24/2022 154.94 cm 39.5 kg/m2 50108.81 g 174 mm[Hg] 77 mm[Hg] Milena [facility] 3 11:22:38 Date Recorded Body height Body mass index (BMI) Body weight Systolic blood pressure Diastolic blood pressure Systolic blood pressure Diastolic blood pressure Provider Name and Address Organization Details Last Updated DateTime 3 154.94 cm 40.1 kg/m2 98781.5 8 g 180 mm[Hg] 72 mm[Hg] 160 mm[Hg] 80 mm[Hg] Milena [facility] 3 15:30:37 Social History Question Answer Notes LastModified by Organizat ion Details LastModified Time Do You Have An Advance Directive? Yes Information n ot available 06/14/2020 What Is Your Level Of Alcohol Consumption? Occasional Information not available 06/14/2020 How Many Years Have You Consumed Alcohol? 65 Information not available 08/03/2022 Are You Blind Or Do You Have Difficulty Seeing? No Information n ot available 06/14/2020 What Is Your Level Of Caffeine Consumption? Moderate Information not available 06/14/2020 How Much Tobacco Do You Chew? None Information not available 06/14/2020 In The 14 Days Before Symptom Onset, Have You Had Close Contact With A Laboratory-confirm ed COVID-19 While That Case Was Ill? No Information n ot available 06/14/2020 In The 14 Days Before Symptom Onset, Have You Had Close Contact With A Person Who Is Under Investigation For COVID-19 While That Person Was Ill? No Information not available 06/14/2020 Have You Been To An Area Known To Be High Risk For COVID-19? No Information not available 06/14/2020 Are You Deaf Or Do You Have Serious Difficulty Hearing? No Information not available 06/14/2020 What Type Of Diet Are You Following? REGULAR Information n ot available 06/14/2020 What Is The Highest Grade Or Level Of School You Have Completed Or The Highest Degree You Have Received? [id number] Information not available 06/14/2020 What Is Your Occupation? Retired Information not available 06/14/2020 Are There Any Guns Present In Your Home? No Information not available 06/14/2020 Do You Use Protection During Sex? No Information not available 06/14/2020 Do You Use Your Seat Belt Or Car Seat Routinely? Yes Information not available 06/14/2020 Do You Have Smoke And Carbon Monoxide Detectors In Your Home? Yes Information not available 06/14/2020 How Much Tobacco Do You Smoke? No Information not available 06/14/2020 Do You Feel Stressed (tense, Restless, Nervous, Or Anxious, Or Unable To Sleep At Night)? [id number] Information not available 06/14/2020 Do You Use Any Illicit Or Recreational Drugs? No Information not available 06/14/2020 Do You Use Sunscreen Routinely? Yes Information not available 06/14/2020 Have You Used IV Drugs? No Information not available 06/14/2020 Sex: Unknown Functional Status Question Answer Note LastModified by Organization D etails LastModified Time Are you able to walk? YESWOREST Information not available 06/14/2020 What is your exercise level? Moderate Information not available 06/14/2020 Mental Status None recorded. Family History Relationship Description Onset Age of this Age Resolved Age Notes LastModified by Organization Details LastModified Time Mother Heart disease Not available 2020 15:18:01 Father Heart disease Not available 2020 15:18:01 Brother Heart disease Not available 2020 15:18:01 Brother Diabetes mellitus [email or web address] Not available 2020 15:26:56 Maternal Grandmother Malignant tumor of breast [email or web address] Not available 2020 15:26:29 Sister Hypertensive disorder [email or web address] Not available 2020 15:26:38 Medical History Condition Response Anesthesia Complications Y Other Y Acid Reflux (GERD) Y Anemia Y Arthritis Y Dermatologic Disorders Y Gynecological History Statement/Question Response Date of Last Mammogram 07/13/2022 Date of LMP 07/08/1983 N Was last menstrual period normal Y HPV Vaccine N Duration of Flow (days) 8 04/08/2020 Current Control Method Menopause If Post Menopausal, Age at Menopause 45 Date of control 04/22/1965 Date of Last Colonoscopy 03/20/2022 Frequency of Cycle (Q days) 28 Most Recent Bone Density 05/03/2020 Sexually Active? N Date of DEXA bone scan 09/08/2020 Age of first menstrual cycle 11 Date of Last Pap Smear 08/03/2022 Sexual Problems? N LMP Approximate 03/20/2022 N Obstetrics History GPAL:G 1 P 0 0 1 0 Type Value Induced 1 Living 0 Total 1 Past Encounters Encounter ID Performer Location Encounter Start Date Encounter Closed Date Diagnosis/Indication Diagnosis SNOMED-CT Code Diagnosis ICD10 Code Diagnosis Note [id number] Carlo Tran MD [place] [address] [address] 06/14/2020 15:13:21 06/14/2020 16:02:11 Gynecologic examination [id number] Z01.419 This patient is here for her annual exam. A thorough history was taken. A physical exam was performed. Age appropriat e routine health screening was ordered, performed, and discussed. Recommende d testing was ordered. She was asked to follow up in one year. She will be informed of any test results. Mammogram - [ done ] Colonoscop y - [ next year ] Bone Density - [ ordered ] Cholestero l - [ done ] Pap - today [id number] MD Ayaan Sanchez [address] [address] 08/03/2022 12:31:44 08/03/2022 13:28:24 Gynecologic examination [id number] Z01.419 This patient is here for her annual exam. A thorough history was taken. A physical exam was performed. Age appropriat e routine health screening was ordered, performed, and discussed. Recommende d testing was ordered. She was asked to follow up in one year. She will be informed of any test results. Mammogram - [ done ] Colonoscop y - [ next year ] Bone Density - [ ordered ] Cholestero l - [ done ] Pap - today [id number] Carlo Tran MD [place] [address],[place] [address] 09/07/2022 10:38:23 09/07/2022 12:08:12 Atypical glandular cells on cervical Papanicolaou smear 128713399 R87.619 incomplete evaluation could not be performed today. We wanted to do endometria l biopsy, endocervic al curettage, and evaluation of cervix. The cervical exam was difficult. It was an irregular contour that was firm. Biopsies could not be taken. Endocervic al curettage could not be performed due to the stenotic nature of the cervix, endometria l biopsy could not be performed here going to obtain a pelvic ultrasound . She is going to return. We talked about the pelvic ultrasound were going to consider LEEP procedure, endometria l biopsy and endocervic al Curettage. [id number] [facility] [address],[facility] [place] [address] 09/24/2022 10:22:19 09/25/2022 12:08:53 Cyst of ovary 83257037 N83.209 R87.619 [id number] Carlo Tran MD [place] [address],[facility] [place] [address] 09/24/2022 10:22:53 09/25/2022 12:09:08 Atypical glandular cells on cervical Papanicolaou smear 040760701 R87.619 77-year-ol d female with atypical glandular cells of undetermin ed significan ce. We have agreed to perform hysterosco py D&C in the hospital. She understand s the risks, benefits, and alternativ es. She has completed the informed consent process. She has a stenotic cervix and this could not be performed in the office. [id number] Faiza Sanchez [place] [address] [address] 11/08/2022 09:46:58 11/08/2022 09:53:28 [id number] Carlo Tran MD [place] [address] [address] 11/14/2022 14:56:26 11/14/2022 17:07:15 Atypical glandular cells on cervical Papanicolaou smear [id number] R87.619 this patient is a 77-year-ol d female who presents for follow-up on Adria Pap smear. She underwent hysterosco py D&C. She tolerated it well. It was performed at the hospital. Her biopsies were normal. She had a endocervic al and endometria l curettage. Both were normal. She will follow-up for repeat Pap smear 1 year. We reviewed DEXA scan results. They were normal. Health Concerns Section Related Observation LastModified by Organization Detai ls LastModified Time None Recorded Concern Status LastModified by Organization Details LastModified Time None Recorded Advance Directives Directive Y: Payers Encounter Date Sequence Insurance Name Policy Number Policy Lovelace Covered Member ID Lovelace Member ID Guarantor Name 09/07/2022 2 [employer] OPT[employer] (MEDICARE SUPPLEMENT) Chanel Márquez [id number] Chanel Márquez 09/07/2022 1 [place] Chanel Jacoboton [id number] Chanel Jacoboton 09/24/2022 2 [employer] OPTIONS (MEDICARE SUPPLEMENT) Chanel Márquez [id number] Chanel Willi 09/24/2022 1 [place] Chanel B Willi [id number] Chanel Willi 09/24/2022 2 [employer] OPTIONS (MEDICARE SUPPLEMENT) Chanel Márquez [id number] Chanel Willi 09/24/2022 1 [place] Chanel B Willi [id number] Chanel Willi 11/07/2022 2 [employer] OPTIONS (MEDICARE SUPPLEMENT) Chanel Márquez [id number] Chanel Márquez 11/07/2022 1 [place] Chanel Márquez [id number] Chanel Márquez 11/14/2022 2 [employer] (MEDICARE SUPPLEMENT) Chanel Márquez [id number] Chanel Márquez 11/14/2022 1 [place] Chanel Márquez [id number] Chanel Márquez Notes Date Note Type Note Provider Name and Address Organization Details Recorded Time 09/07/2022 text/html Patient with atypical glandular cells presents for colposcopy and endocervical curettage and endometrial biopsy. Carlo Tran MD [address], [place], [address], [facility] 09/07/2022 11:54:19 09/24/2022 text/html this patient is 77-year-old female with a abnormal Pap smear. She had atypical glandular cells. Endometrial biopsy and cervical curettage could not be performed in the office due to stress cervical stenosis. Ultrasound is essentially normal. I made the recommendation to have a hysteroscopy D&C the hospital. We spent 20 minutes [id number]. More than 50% was counseling. We agreed to move forward with hysteroscopy D&C. The patient understands the procedure. The procedure was described to the patient in great detail. the patient also understands the risks. The risks were also explained in detail. She understands that injuries May occur during surgery. She understands these injuries can result in hospitalization, more surgery, and severe illness. She understands there is risk of hemorrhage and infection. Carlo Tran MD [address], [place], [address], [facility] 09/24/2022 11:53:21 11/14/2022 text/html this patient is a 77-year-old female who presents for follow-up on Adria Pap smear. She underwent hysteroscopy D&C. She tolerated it well. It was performed at the hospital. Her biopsies were normal. She had a endocervical and endometrial curettage. Both were normal. She will follow-up for repeat Pap smear 1 year. We reviewed DEXA scan results. They were normal. Carlo Tran MD [address], [place], [address], [facility] 11/14/2022 17:06:47 OBGyn Episode Ob Episode Information Episode Created Date Number of Fetuses Patient Bloodtype Patient rh Status Prepregnancy Weight lbs Domestic Partner Domestic Partner Phone Father Name Tank Insulator Rubber Status 06/15/19 21 1 CLOSED Fetus Data First Name Last Name Admitted to NICU Weight (g) Sex Living Outcome Pediatric Complications Fetus ID Race Codes Race Delivery Type , Induced [id number] Danish Calculation Initial Danish Date Initial Exam Date Initial Exam Provider Initial Ultrasound Date Last Menstrual Period Date Ultra Sound Weeks Gestation 0 Eighteen To Twenty Week Danish Update Ultra Sound Date Fundal Height At Umbil Quickening Date Ultra Sound Latest Weeks Gestation Final Danish Confirmed By Final Danish Confirmed Date Final Danish Date Ultra Sound Latest Days Gestation 0 0 Menstrual History Last Menstrual Date Menses Monthly On Bcp Conception Prior Menses Frequency Hcg Plus Date Menarche Onset Age Delivery Information Delivery Date Delivery Type Labor Anesthesia Weeks Gestation Incision Type Labor Labor Length Hrs Delivered By Post Complications Tubal Sterilization Discharge Date Comments 6 Discharge Information Feeding Method Contraceptive Method Maternal HG B and HCT Levels
--- OUTSIDE RECORDS SUMMARY | 2024-06-23 07:37 | XMS_ITS | Referral Summary ---
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
--- OUTSIDE RECORDS SUMMARY | 2024-06-23 07:37 | XMS_ITS | Patient Health Summary ---
Author Organization [facility] Address [address] [place] [address] Care Team Providers Care Caster Investment Casting Name Role Phone JesusBarron DO Primary Care Provider Note from [facility],non-owned Affiliates and Associated Physician Practices is amultiple site organization consisting of ambulatory clinics and hospital sitesin [place], [place], [place] and [place]. This disclosure is being madepursuant to the Care Everywhere program and may not contain all information available regarding this patient. Last updated 17.[facility] Allergies * Propofol(Nausea and/or Vomiting,Other) -Medium Criticality Medications * Be aware that medications may not be up to date on this document. Alwaysverify current medications with the patient. * aspirin (ASPIRIN) 81 MG tablet Take 1 (one) tablet by mouth once daily * furosemide (LASIX) 40 MG tablet Take 1 (one) tablet by mouth as directed * levothyroxine (SYNTHROID) 25 MCG tablet(Started 12/20/2017) Take 1 (one) tablet by mouth once daily 11 refills left * vitamin E (TOCOPHERYL) 400 UNIT capsule Take 1 (one) capsule by mouth once daily * ascorbic acid (VITAMIN C) 500 MG tablet Take 1 (one) tablet by mouth once daily * Cholecalciferol (VITAMIN D3) 947449 UNIT/GM Take 1 tablet by mouth once daily * CINNAMON PO Take 1,500 mg by mouth once daily * losartan (Cozaar) 25 MG tablet(Started 03/06/2023) Take 1 (one) tablet by mouth once daily * doxycycline hyclate (Vibramycin) 100 MG capsule(Started 04/02/2023) Take 1 (one) capsule by mouth daily with food 1 refill by 04/01/2024 * clobetasol (Temovate) 0.05 % solution(Started 04/02/2023) Apply to affected areas of frontal scalp once daily. 30 day supply. 5 refills by 04/01/2024 * prednisoLONE acetate (Pred Forte) 1 % ophthalmic suspension(Started 10/02/2023) Instill 1 (one) drop into left eye 3 times daily * prednisoLONE acetate (Pred Forte) 1 % ophthalmic suspension(Started 01/22/2024) Instill 1 (one) drop into right eye 4 times daily * nepafenac (Nevanac) 0.1 % ophth suspension(Started 01/22/2024) Instill 1 drop into right eye 4 times daily * moxifloxacin (Vigamox) 0.5 % ophthalmic solution(Started 01/22/2024) Instill 1 (one) drop into right eye 4 times daily * Other(Started 03/10/2024) Cholesterol 2% combined with Lovastatin 2% in a cream applied to affected lesions on the arms and legs daily. 30 day supply. 11 refills by 03/10/2025 Active Problems Problem Noted Date Diagnosed Date Blurred vision 08/08/2022 Cataract 08/08/2022 Dry eye 08/08/2022 PVD (posterior vitreous detachment), left eye Heart murmur 08/08/2022 Hearing loss 08/08/2022 Disorder of thyroid 08/08/2022 Rheumatoid arthritis 08/08/2022 Fatigue 08/08/2022 Primary osteoarthritis of left knee 09/20/2021 Actinic skin damage 07/24/2021 Actinic keratoses 07/24/2021 Venous stasis dermatitis of both lower extremiti es 03/21/2020 Seborrheic keratoses, inflamed 03/21/2020 Disseminated superficial actinic porokeratosis 1 05/22/2019 Lentigines 03/21/2020 Cyst of ovary 05/05/2018 08/08/2022 Vitreous degeneration 02/26/2013 Multiple defects of retina without detachment Immunizations * INFLUENZA VACCINE(Given 01/06/2021, 01/20/2020, 02/10/2018, 01/23/2017, 01/17/2016, 01/31/2015) * INFLUENZA VACCINE, ADJUVANTED, QUADR. (FLUAD QUADRIVALENT; 65Y+) (AIIV4)(Given 01/15/2020) * INFLUENZA VACCINE, CELL CULTURE, QUADR. (FLUCELVAX QUADRIVALENT; 6MO+) (CCIIV4)(Given 01/16/2019) * Pneumococcal Pcv13 Conj(Given 01/17/2016) * Zoster Hzv Vacc Recombinant Inj Im(Given 03/17/2019, 01/16/2019) Social History Tobacco Use Types Packs/Day Years [...] Mass Index 36.58 01/21/2024 6:50 AM CDT Medical Devices Implanted Type Area Webbing Supervisor Device Identifier Shelf Expiration Date Model / Serial / Lot Clareon 20.5d Implanted:Qty: 1 on 09/24/2023 by Alvaro Lott MD at [facility] Left: Eye [employer] 12/31/2026 [id number] . 5D / [id number] Clareon Uv Iol [id number] +20.0d Implanted:Qty: 1 on 01/21/2024 by Alvaro Lott MD at [facility] Right: Eye [employer] 01/06/2027 [id number] +20.0D / [id number] / NA Procedures * MD DESTROY PREMALIG LESION, 2-14(Performed 03/10/2024) Performed for Actinic keratosis * MD DESTROY PREMALIG LESION, 1ST LESION(Performed 03/10/2024) Performed for Actinic keratosis * MD REMV CATARACT EXTRACAP,INSERT LENS(Performed 01/21/2024) Performed for Combined forms of age-related cataract of both eyes * MD REMV CATARACT EXTRACAP,INSERT LENS(Performed 09/24/2023) Performed for Combined forms of age-related cataract of both eyes * MD DESTROY PREMALIG LESION, 1ST LESION(Performed 04/03/2023) Performed for Actinic keratoses * MD PUNCH BX SKIN SINGLE LESION(Performed 08/21/2022) Performed for Rash and other nonspecific skin eruption * MD DESTROY PREMALIG LESION, 1ST LESION(Performed 08/21/2022) Performed for Actinic keratosis * MD DESTROY PREMALIG LESION, 2-14(Performed 08/21/2022) Performed for Actinic keratosis * DERMATOPATHOLOGY(Performed 08/21/2022) Performed for Rash and other nonspecific skin eruption * OPH OCT TEST [facility](Performed 05/31/2022) Performed for Epiretinal membrane (ERM) of right eye * MD DRAIN/INJECT LARGE JOINT/BURSA(Performed 12/29/2021) Performed for Primary osteoarthritis of left knee * OPH OCT TEST [facility](Performed 11/28/2021) Performed for Epiretinal membrane (ERM) of right eye * MD DESTROY PREMALIG LESION, 1ST LESION(Performed 11/07/2021) Performed for Actinic keratosis * MD DESTRUCT BENIGN LESION, 1-14(Performed 09/26/2021) Performed for Other viral warts * MD DESTROY PREMALIG LESION, 1ST LESION(Performed 09/26/2021) Performed for Actinic keratosis * MD DESTROY PREMALIG LESION, 2-14(Performed 09/26/2021) Performed for Actinic keratosis * MD DRAIN/INJECT LARGE JOINT/BURSA(Performed 09/20/2021) Performed for Primary osteoarthritis of left knee * XR KNEE LEFT 4VW OR MORE(Performed 09/20/2021) Performed for Left knee pain, unspecified chronicity * MD DESTROY PREMALIG LESION, 1ST LESION(Performed 07/24/2021) Performed for Actinic keratoses * OPH OCT TEST [facility](Performed 05/30/2021) Performed for Epiretinal membrane (ERM) of right eye, Vitreoretinal degeneration of both eyes * OPH OCT TEST [facility](Performed 11/28/2020) Performed for Epiretinal membrane (ERM) of right eye * OPH OCT TEST [facility](Performed 07/29/2020) Performed for Epiretinal membrane (ERM) of right eye * MD DESTROY PREMALIG LESION, 1ST LESION(Performed 03/21/2020) Performed for Porokeratosis * MD DESTROY PREMALIG LESION, 2-14(Performed 03/21/2020) Performed for Porokeratosis * MD DESTRUCT BENIGN LESION, 1-14(Performed 03/21/2020) Performed for Seborrheic keratoses, inflamed * OPH OCT TEST [facility](Performed 01/07/2020) Performed for Vitreoretinal degeneration of both eyes * OPH OCT TEST [facility](Performed 01/21/2019) Performed for Epiretinal membrane (ERM) of right eye * MD DESTRUCT BENIGN LESION, 1-14(Performed 03/12/2018) Performed for Seborrheic keratoses, inflamed * OPH OCT TEST [facility](Performed 01/20/2018) Performed for Vitreoretinal degeneration of both eyes Results * MD DESTROY PREMALIG LESION, 1ST LESION, MD DESTROY PREMALIG LESION, 2-14 (03/10/2024 10:22 AM TUCK POINTER HELPER) Narrative Bethany Aviles MD - 03/10/2024 10:22 AM TUCK POINTER HELPER Nimco Kothari MD 03/10/2024 10:23 AM Diagnosis and treatment options discussed, addressing the benefit and risks of each. Pt wish to proceed with cryotherapy. Liquid Nitrogen was applied to lesion(s) for 7-10s each. Number of cycles: 1. Wound care reviewed. L upper back x1 R FA x2 = 3 total Nimco Kothari MD [facility] Dermatology Resident Bethany Aviles MD PROCEDURE/MINOR ZALDIVAR RGICAL ORDERABLES * MD DESTROY PREMALIG LESION, 1ST LESION (04/03/2023 8:40 AM TUCK POINTER HELPER) Bethany Montoya MD - 04/03/2023 8:40 AM Ronda Adam DO 04/03/2023 8:41 AM Diagnosis and treatment options discussed. Cryotherapy (Liquid Nitrogen) to 1 AK for 4-6 seconds (see office visit note for locations). Number of cycles: 1. Wound care reviewed. Ronda Morrell DO PGY-4 Dermatology Resident Bethany Aviles MD PROCEDURE/MINOR ZALDIVAR RGICAL ORDERABLES * MD PUNCH BX SKIN SINGLE LESION (08/21/2022 11:50 AM CDT) Narrative Pasha Soto MD - 08/21/2022 11:50 AM CDT Frieda Gaines MD 08/21/2022 11:50 AM Risks, benefits and alternatives to punch biopsy were discussed with the patient, including risks of infection, scar (100% chance), the possibility of non-diagnostic reading, and the potential need for further testing or treatment, including surgical. Patient expressed understanding and verbal consent was obtained. Location: Central frontal scalp Punch biopsy: 4mm Skin prep: Alcohol Anesthesia: 1% lidocaine with epinephrine Closure: 4-0 nylon suture Dressing and wound care discussed. Patient agrees to phone call for results and message if not available. Frieda Gaines MD [facility] Dermatology Resident, PGY-4 Pasha Soto MD PROCEDURE/MINOR SURG ICAL ORDERABLES * MD DESTROY PREMALIG LESION, 2-14, MD DESTROY PREMALIG LESION, 1ST LESION (08/21/2022 11:50 AM CDT) Narrative Pasha Soto MD - 08/21/2022 11:50 AM CDT Frieda Gaines MD 08/21/2022 11:50 AM Diagnosis and treatment options discussed. Cryotherapy (Liquid Nitrogen) to 2 AK (R arm) x 6-7 seconds each. Number of cycles: 1. Wound care reviewed. Frieda Gaines MD [facility] Dermatology Resident, PGY-4 Pasha Soto MD PROCEDURE/MINOR SURG ICAL ORDERABLES * DERMATOPATHOLOGY (08/21/2022 11:49 AM CDT) Case Report Dermatopathology Report Case: [id number] Authorizing Provider: Pasha Soto MD Collected: 08/21/2022 11:49 AM Ordering Location: [facility] [place] Received: 08/21/2022 04:01 PM Pathologist: Bethany Aviles MD Specimen: Skin, central frontal scalp 3:43 PM [facility] DERMATOPATHOLOGY LABORATORY Final Diagnosis Specimen A. 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 contact dermatitis vs. folliculitis 3:43 PM [facility] DERMATOPATHOLOGY LABORATORY Gross Description Specimen A: Received is one formalin filled container labeled with the patient's name and designated central frontal scalp. The specimen consists of a punch biopsy measuring 3x4x3 mm. Jar 0. 3:43 PM [facility] DERMATOPATHOLOGY LABORATORY Microscopic Description Specimen A. SKIN, central frontal scalp: In the dermis, there is a dense lichenoid lymphohistiocytic infiltrate surrounding the infundibulum and the isthmus of the follicles. There are scattered dyskeratotic cells. There is also a concentric lamellar fibroplasia around hair follicles. The interfollicular epidermis is uninvolved. Multiple additional deeper sections were obtained and reviewed. Periodic acid-Sav (PAS) stain fails to highlight fungal elements in the available sections and shows focal slightly thickened basement membrane. The Verhoeff-Van Gieson (VVG) elastic stain shows diminished elastic fibers around the follicular infundibula. 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 3:43 PM [facility] DERMATOPATHOLOGY LABORATORY Disclaimer An external and internal positive and negative controls are appropriate for the histochemical, immunohistochemical and immunofluorescence stain(s) in this case (if any), except where stated explicitly. The performance characteristics of the stain(s) cited in this report were developed and its performance characteristic determined by the Dermatopathology Laboratory at [facility], directed by Dr. Ricco March. These tests need not be, and therefore are not, approved by the [place] Food and Drug Administration. The tests are used for clinical purposes. Billing Codes Specimen Charges Stain Charges 80724 1 [id number] 1 1 3 3:43 PM CDT DERMATOPATHOLOGY LABORATORY Embedded Images 3 3:43 PM CDT DERMATOPATHOLOGY LABORATORY Pathology/Cytolo gy TISSUE SPECIMEN FROM SKIN / Unknown 08/21/2022 11:49 AM CDT 08/21/2022 4:01 PM CDT Pasha Soto MD LAB - PATHOLOGY/CYTO LOGY ORDERABLES DERMATOPATHOLOGY LABORATORY [facility] - Department of Dermatology [address], [address] [phone] * OCT (05/31/2022 8:50 AM TUCK POINTER HELPER) Anatomical Region Laterality Modality Other 05/31/2022 8:5 0 AM TUCK POINTER HELPER Justin Raymond MD OPHTHALMOLOGY SERVIC ES ORDERABLES * MD DRAIN/INJECT LARGE JOINT/BURSA (12/29/2021 9:00 AM CDT) Narrative Lindsey Braden PA-C - 12/29/2021 9:00 AM CDT Lindsey Braden PA-C 12/29/2021 10:15 AM Injecton knee The patient was offered a cortisone injection into the left knee. After discussing the risks and benefits of the procedure, the patient elected to proceed. After sterile preparation, the left knee was injected at the superolateral patellar portal while supine, with a combination in One syringe: 3mL ropivacaine or lidocaine and Second syringe: 4mL ropivacaine or lidocaine (5mg/mL) + 2ml Kenalog (40mg/mL). The patient tolerated the procedure well without complication. There was zero blood loss. Lindsey Braden PA-C PROCEDURE/MINOR SURG ICAL ORDERABLES * OCT (11/28/2021 7:48 AM CDT) Anatomical Region Laterality Modality Other 11/28/2021 7:48 AM CDT Justin Raymond MD OPHTHALMOLOGY SERVIC ES ORDERABLES * MD DESTROY PREMALIG LESION, 1ST LESION (11/07/2021 5:03 PM CDT) Narrative Bethany Aviles MD - 11/07/2021 5:03 PM CDT Frieda Gaines MD 11/07/2021 5:03 PM Diagnosis and treatment options discussed. Cryotherapy (Liquid Nitrogen) to 1 AK (R forearm) x 6-7 seconds each. Number of cycles: 1. Wound care reviewed. Frieda Gaines MD [facility] Dermatology Resident, PGY-4 Bethany Aviles MD PROCEDURE/MINOR ZALDIVAR RGICAL ORDERABLES * MD DESTRUCT BENIGN LESION, 1-14 (09/26/2021 10:25 PM CDT) Narrative Bethany Aviles MD - 09/26/2021 10:25 PM CDT Jack Kinsey MD 09/26/2021 10:25 PM Diagnosis and treatment options discussed. Cryotherapy (Liquid Nitrogen) to 1 lesion for 8 seconds. Number of cycles: 2. Wound care reviewed. Jack Kinsey MD [facility] Dermatology Resident PGY4 Bethany Aviles MD PROCEDURE/MINOR ZALDIVAR RGICAL ORDERABLES * MD DESTROY PREMALIG LESION, 2-14, MD DESTROY PREMALIG LESION, 1ST LESION (09/26/2021 10:25 PM CDT) Narrative Bethany Aviles MD - 09/26/2021 10:25 PM CDT Jack Kinsey MD 09/26/2021 10:25 PM Diagnosis and treatment options discussed. Cryotherapy (Liquid Nitrogen) to 3 lesions for 4-6 seconds each. Number of cycles: 1. Wound care reviewed. Jack Kinsey MD [facility] Dermatology Resident PGY4 Bethany Aviles MD PROCEDURE/MINOR ZALDIVAR RGICAL ORDERABLES * MD DRAIN/INJECT LARGE JOINT/BURSA (09/20/2021 9:15 AM CDT) Narrative Lindsey Braden PA-C - 09/20/2021 9:15 AM CDT Lindsey Braden PA-C 09/21/2021 12:05 PM Injecton knee The patient was offered a cortisone injection into the left knee. After discussing the risks and benefits of the procedure, the patient elected to proceed. After sterile preparation, the left knee was injected, with a combination in One syringe: 3mL ropivacaine or lidocaine and Second syringe: 4mL ropivacaine or lidocaine (5mg/mL) + 2ml Kenalog (40mg/mL). The patient tolerated the procedure well without complication. There was zero blood loss. Francisco Javier Henderson MD PROCEDURE/MINOR SURG ICAL ORDERABLES * XR KNEE LEFT 4VW OR MORE (09/20/2021 8:42 AM CDT) Anatomical Region Laterality Modality Lower Extremity Radiographic Marian ging 09/20/2021 10:3 8 AM CDT Impressions 09/20/2021 9:40 PM CDT IMPRESSION: Moderate to severe osteoarthritis of the medial compartment. Dictated by Severiano Whipple MD (vice president business development). I, Dr. SARAHI LOERA have personally reviewed and interpreted this examination/study. This report was electronically signed by SARAHI LOERA on 09/20/2021 9:40 PM . Narrative 09/20/2021 9:40 PM CDT EXAMINATION: XR KNEE LEFT 4VW OR MORE DATE: 09/20/2021 8:42 AM HISTORY: M25.562: Left knee pain, unspecified chronicity COMPARISON: No prior study is available for comparison. FINDINGS: The osseous structures are intact and well aligned without acute fracture or dislocation. Severe joint space narrowing of the medial compartment. Small lateral and medial compartment osteophytes. Moderate joint space narrowing of the patellofemoral compartment with small osteophytes. Procedure Note Sarahi Loera MD - 09/20/2021 EXAMINATION: XR KNEE LEFT 4VW OR MORE DATE: 09/20/2021 8:42 AM HISTORY: M25.562: Left knee pain, unspecified chronicity COMPARISON: No prior study is available for comparison. FINDINGS: The osseous structures are intact and well aligned without acutefracture or dislocation. Severe joint space narrowing of the medial compartment. Small lateral and medial compartment osteophytes. Moderate joint space narrowing of the patellofemoral compartment with small osteophytes. IMPRESSION: Moderate to severe osteoarthritis of the medial compartment. Dictated by Severiano Whipple MD (vice president business development). I, Dr. SARAHI LOERA have personally reviewed and interpreted this examination/study. This report was electronically signed by SARAHI LOERA on 09/20/2021 9:40 PM . Francisco Javier Henderson MD DIAGNOSTIC IMAGING O RDERABLES * MD DESTROY PREMALIG LESION, 1ST LESION (07/24/2021 11:58 AM CDT) Narrative Chris Magdaleno MD - 07/24/2021 11:58 AM CDT Chris Magdaleno MD 07/24/2021 11:59 AM Diagnosis and treatment options discussed. Cryotherapy (Liquid Nitrogen) to one lesion(s) on r wrist for 5-7 seconds each. Number of cycles: 1. Wound care reviewed. Chris Magdaleno MD PROCEDURE/MINOR SURG ICAL ORDERABLES * OPH OCT TEST [facility] (05/30/2021 9:33 AM TUCK POINTER HELPER) Anatomical Region Laterality Modality Other 05/30/2021 9:33 AM TUCK POINTER HELPER Long Cooney MD OPHTHALMOLO GY SERVICES ORDERABLES * OCT (11/28/2020 8:42 AM CDT) Anatomical Region Laterality Modality Other 11/28/2020 8:42 AM CDT Long Cooney MD OPHTHALMOLO GY SERVICES ORDERABLES * OCT (07/29/2020 11:09 AM CDT) Anatomical Region Laterality Modality Other 07/29/2020 11:0 9 AM CDT Long Cooney MD OPHTHALMOLO GY SERVICES ORDERABLES * MD DESTROY PREMALIG LESION, 2-14, MD DESTROY PREMALIG LESION, 1ST LESION (03/21/2020 7:44 PM TUCK POINTER HELPER) Narrative Chris Magdaleno MD - 03/21/2020 7:44 PM TUCK POINTER HELPER Carrie Canales MD 03/21/2020 7:45 PM Diagnosis and treatment options discussed for AK. Verbal consent obtained. Cryotherapy (Liquid Nitrogen) performed to 11 lesions (RUE x1, RLE x5, LLE x5) for 10 seconds each. Number of cycles: 1. Wound care reviewed and post-cryotherapy handout given. Carrie Canales MD Dermatology Resident, PGY-2 [facility], Department of Dermatology Chris Magdaleno MD PROCEDURE/MINOR SURG ICAL ORDERABLES * MD DESTRUCT BENIGN LESION, 1-14 (03/21/2020 7:43 PM TUCK POINTER HELPER) Narrative Chris Magdaleno MD - 03/21/2020 7:43 PM TUCK POINTER HELPER Carrie Canales MD 03/21/2020 7:44 PM Diagnosis and treatment options discussed for ISK. Verbal consent obtained. Cryotherapy (Liquid Nitrogen) performed to 1 lesion (R frontal scalp) for 8-10 seconds each. Number of cycles: 2. Wound care reviewed and post-cryotherapy handout given. Carrie Canales MD Dermatology Resident, PGY-2 [facility], Department of Dermatology Chris Magdaleno MD PROCEDURE/MINOR SURG ICAL ORDERABLES * OPH OCT TEST [facility] (01/07/2020 9:08 AM CDT) Anatomical Region Laterality Modality Other 01/07/2020 9:08 AM CDT Long Cooney MD OPHTHALMOLO GY SERVICES ORDERABLES * OPH OCT TEST [facility] (01/21/2019 8:41 AM CDT) Anatomical Region Laterality Modality Other 01/21/2019 8:41 AM CDT Petrona Parnell MD OPHTHALMOLOGY SERVI MIGUELITO ORDERABLES * MD DESTRUCT BENIGN LESION, 1-14 (03/12/2018 10:36 AM TUCK POINTER HELPER) Narrative Esther Rashid MD - 03/12/2018 10:36 AM TUCK POINTER HELPER Esther Rashid MD 03/12/2018 10:36 AM Diagnosis and treatment options discussed. Cryotherapy (Liquid Nitrogen) to 1 lesion right lower abdomen for 10-12 seconds each. Number of cycles: 2. Wound care reviewed. Esther Rashid MD PROCEDURE/MINOR ZALDIVAR RGICAL ORDERABLES * OPH OCT TEST [facility] (01/20/2018 12:00 AM CDT) Anatomical Region Laterality Modality Other 01/20/2018 Allen Matias MD OPHTHALMOLOGY SERVIC ES ORDERABLES Care Teams Caster Investment Casting Relationship Specialty Start Date End Date Barron Lee DO [address] [place] [address] PCP - General Internal Medicine 03/10/24
--- OUTSIDE RECORDS SUMMARY | 2024-06-23 07:38 | XMS_ITS | Clinical Summary ---
Author Organization [facility] [employer] Address [address] [place] [address] Care Team Providers Care Flat Lock Operator Name Role Phone JesusBarron DO Primary Care Provider Source Comments [facility] [employer],non-owned Affiliates and Associated Physician Practices is amultiple site organization consisting of ambulatory clinics and hospital sitesin [place], [place], [place] and [place]. This disclosure is being madepursuant to the Care Everywhere program and may not contain all information available regarding this patient. Last updated 17.[facility] [employer] Allergies Active Allergy Reactions Criticality Noted Date [...] mouth once daily Active Cholecalciferol (VITAMIN D3) 380004 UNIT/GM Take 1 tablet by mouth once [...] 05/22/2019 Assessment & Plan (03/07/2021 10:01 AM PROCESS SAFETY SPECIALIST): - fluorouracil (EFUDEX) 5 % cream; Apply [...] Zoster Hzv Vacc Recombinant Inj Im 03/17/2019, Family History Medical History Relation Name Comments Heart Failure Brother None Known Father None Known Maternal Aunt None Known Maternal Grandfather None Known Maternal Grandmother None Known Maternal Uncle None Known Mother None Known Other None Known Paternal Aunt None Known Paternal Grandfather None Known Paternal Grandmother None Known Paternal Uncle None Known Sister Asthma Neg Hx CVA Neg Hx Cancer - Breast Neg Hx Cancer - Other Neg Hx Cancer - Skin, Melanoma Neg Hx Cancer - Skin, Non Melanoma Neg Hx Eczema Neg Hx Hemophilia Neg Hx Psoriasis Neg Hx Relation Name Status Comments Brother Father Maternal Aunt Maternal Grandfather Maternal Grandmother Maternal Uncle Mother Other Paternal Aunt Paternal Grandfather Paternal Grandmother Paternal Uncle Sister Social History Tobacco Use Types Packs/Day Years [...] 01/21/2024 6:50 AM CDT Plan of Treatment Health Maintenance Due Date Last Done Comments BONE DENSITY TESTING 1945 HEPATITIS C SCREENING 06/11/1963 DTAP/TDAP/TD VACCINES (1 - Tdap) 1964 PNEUMOCOCCAL VACCINE 50+ (2 of 2 - PPSV23) 01/16/2017 01/17/2016 Respiratory Syncytial Virus (RSV) Vaccine Pt: or over 60 yrs (1 - 1-dose 75+ series) 2020 COVID-19 VACCINE (3 - season) 2023 06/21/2020, 05/31/2020 INFLUENZA VACCINE (#1) 2023 , 01/20/2020, 01/15/2020, Additional history exists DEPRESSION SCREENING 04/08/2024 MEDICARE AWV CALENDAR YEAR 2024 ZOSTER VACCINE Completed 03/17/2019, 01/16/2019 HEPATITIS B VACCINE Aged Out No longe r eligible based on patient's age to complete this topic HIB VACCINE Aged Out No longer eligi ble based on patient's age to complete this topic HPV VACCINE Aged Out No longer eligi ble based on patient's age to complete this topic MENINGOCOCCAL (Group B) VACCINE SHARED DECISION-MAKING Aged Out No longer eligible based on patient's age to complete this topic MENINGOCOCCAL GROUPS A/C/Y/W VACCINE Aged Out No longer eligible based on patient's age to complete this topic Medical Devices Implanted Type Area Systems Development Manager Device Identifier Shelf Expiration Date Model / Serial / Lot Clareon 20.5d Implanted:Qty: 1 on 09/24/2023 by Alvaro Lott MD at [facility] Left: Eye [employer] 12/31/2026 [id number] . 5D / [id number] Clareon Uv Iol [id number] +20.0d Implanted:Qty: 1 on 01/21/2024 by Alvaro Lott MD at [facility] Right: Eye [employer] 01/06/2027 [id number] +20.0D / [id number] / NA Care Teams Flat Lock Operator Relationship Specialty Start Date End Date Barron Lee DO [address] [place] [address] PCP - General Internal Medicine 03/10/24
[2024-06-23 08:33] LABS: Alanine Aminotransferase 19 U/L (6-35); Albumin Level 4.6 g/dL (3.5-5.1); Alkaline Phosphatase 122 U/L (38-126); Anion Gap 8 mmol/L (4-12); Aspartate Amino Transferase 23 U/L (14-36); Bilirubin,Total 0.8 mg/dL (0.2-1.3); Blood Urea Nitrogen 16 mg/dL (7-17); Calcium 9.8 mg/dL (8.4-10.2); Carbon Dioxide 25 mmol/L (22-30); Chloride 108 mmol/L (98-107); Cholesterol 192 mg/dL (0-200); Estimated Glomerular Filt Rate > 60; Glucose 115 mg/dL (65-110); HDL Direct 60 mg/dL; Potassium 4.5 mmol/L (3.4-5.0); Sodium 141 mmol/L (137-145); Triglycerides 85 mg/dL (<150)
[2024-06-23 08:42] LABS: LDL Cholesterol Direct 102 mg/dL
[2024-06-23 11:07] LABS: Hemoglobin A1C 6.2 % (<5.7)
== END 2024-06-23 07:34 | disposition home or self-care (01) ==
LOC: ANHIMG 07:35 → ANHLAB 07:36
PROVIDERS: PCP Internal Medicine; Visit Provider Nurse Practitioner
DX: R73.9 Hyperglycemia, unspecified (principal); E03.9 Hypothyroidism, unspecified; E78.5 Hyperlipidemia, unspecified
CPT/HCPCS: 36415; 80053; 80061; 83036; 84443

== ENCOUNTER 2024-06-23 08:53 | Outpatient (CLI) | payer MEDICARE, SELFPAY ==
--- OUTSIDE RECORDS SUMMARY | 2024-06-23 09:20 | XMS_ITS | Clinical Summary ---
Author Organization [facility] [employer] Address [address] [place] [address] Care Team Providers Care Count Room Clerk Name Role Phone JesusBarron DO Primary Care Provider [phone] Source Comments [facility] [employer],non-owned Affiliates and Associated Physician Practices is amultiple site organization consisting of ambulatory clinics and hospital sitesin [place], [place], [place] and [place]. This disclosure is being madepursuant to the Care Everywhere program and may not contain all information available regarding this patient. 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 5D / [id number] Clareon Uv Iol [id number] +20.0d Implanted:Qty: 1 on 01/21/2024 by Alvaro oLtt MD at [facility] Right: Eye [employer] 01/06/2027 [id number] +20.0D / [id number] / NA Care Teams Count Room Clerk Relationship Specialty Start Date End Date Barron Lee DO [address] [place] [address] PCP - General Internal Medicine 03/10/24
--- OUTSIDE RECORDS SUMMARY | 2024-06-23 09:20 | XMS_ITS | Referral Summary ---
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
--- OUTSIDE RECORDS SUMMARY | 2024-06-23 09:20 | XMS_ITS | Clinical Summary ---
Author Organization [facility] Address [address] [place] [id number] Care Team Providers Care Top Installer Name Role Phone Unavailable Primary Care Provider [...]
--- OUTSIDE RECORDS SUMMARY | 2024-06-23 09:20 | XMS_ITS | Clinical Summary ---
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
== END 2024-06-23 08:54 | disposition home or self-care (01) ==
LOC: ANHAUDIO 08:54
PROVIDERS: PCP Internal Medicine; Visit Provider Nurse Practitioner
DX: H90.3 Sensorineural hearing loss, bilateral (principal); H93.19 Tinnitus, unspecified ear
CPT/HCPCS: 92557; 92567

== ENCOUNTER 2024-09-28 13:56 | Outpatient (CLI) | payer MEDICARE, SELFPAY ==
--- NOTE | ~2024-09-28 | MM_ITS ---
EXAMINATION: MM screening [facility] BI w chhaya HISTORY: Screening mammogram TECHNIQUE: Craniocaudal and mediolateral oblique 3-D tomosynthesis images were obtained and synthetic 2-D images were generated. CAD analysis was submitted and interpreted. COMPARISON: 07/30/2023, 07/13/2022, 05/24/2021 BREAST PARENCHYMAL COMPOSITION:Not Dense. There are scattered areas of fibroglandular density. FINDINGS: No suspicious mass, calcification, or architectural distortion are identified in either erin ast to suggest malignancy. There has been no suspicious interval change. IMPRESSION: No mammographic evidence of malignancy. Recommend routine screening mammography in one year. BI-RADS Category 1: Negative Reviewed, dictated and finalized at location .
== END 2024-09-28 13:57 | disposition home or self-care (01) ==
PROVIDERS: PCP Internal Medicine; Visit Provider Obstetrics & Gynecology
DX: Z12.31 Encounter for screening mammogram for malignant neoplasm of breast (principal)
CPT/HCPCS: 77063; 77067

== ENCOUNTER 2024-11-02 12:53 | Outpatient (CLI) | payer MEDICARE, SELFPAY ==
--- NOTE | ~2024-11-02 | DEXA_ITS ---
Bone Density Report Name: AIDA GUPTA Age: 79 Sex: Female Ethnicity: White Date of : 1945 Indication: osteopenia; parental hip fracture; height loss; Referring Provider: YU RAMÍREZ Study: Bone densitometry was performed. Exam Date: November 02, 2024 Accession number: [id number] Bone Density: Region BMD T-score Z-score Classification AP Spine(L1-L4) 0.909 -1.3 1.4 Osteopenia Femoral Neck (Left) 0.802 -0.4 1.9 Normal Total Hip (Left) 0.861 -0.7 1.4 Normal Femoral Neck (Right) 0.744 -0.9 1.3 Normal Total Hip (Right) 0.775 -1.4 0.7 Osteopenia Total Hip Mean 0.818 -1.1 1.1 Osteopenia World Health Organization criteria for BMD impression classify patients as: Normal (T-score at or above -1.0), Osteopenia (T-score between -1.0 and -2.5), or Osteoporosis (T-score at or below -2.5). 10-year Fracture Risk(1): Major Osteoporotic Fracture 16% Hip Fracture 7.6% Reported Risk Factors: [place] (), Neck BMD=0.744, BMI=39.2, parental fracture (1) FRAX(R) Version 3.08. Fracture probability calculated for an untreated patient. Fracture probability may be lower if the patient has received treatment. Previous Exams: -- Region Exam Age BMD T-score BMD Change BMD Change Date g/cm2 vs Baseline vs Previous -- AP Spine (L1-L4) 11/02/2024 79 0.909 -1.3 -7.7%# -4.5%* 10/31/2022 77 0.952 -0.9 -3.4%# -2.5%* 08/10/2020 75 0.977 -0.6 -0.9%# -3.8%* 05/07/2018 72 1.015 -0.3 3.0%# 6.7%# 11/23/2009 64 0.952 -0.9 -3.4%* -3.4%* 07/06/2004 59 0.985 -0.6 Total Hip(Left) 11/02/2024 79 0.861 -0.7 -14.6%# -4.5%* 10/31/2022 77 0.902 -0.3 -10.5%# 0.1% 08/10/2020 75 0.902 -0.3 -10.6%# -2.9% 05/07/2018 72 0.928 -0.1 -7.9%# -0.5%# 11/23/2009 64 0.933 -0.1 -7.5%* -7.5%* 07/06/2004 59 1.008 0.5 Total Hip(Right) 11/02/2024 79 0.775 -1.4 -15.8%# -3.9%* 10/31/2022 77 0.806 -1.1 -12.4%# 0.3% 08/10/2020 75 0.804 -1.1 -12.7%# -0.2% 05/07/2018 72 0.805 -1.1 -12.5%# -5.4%# 11/23/2009 64 0.851 -0.7 -7.5%* -7.5%* 07/06/2004 59 0.920 -0.2 -- *Denotes significance at 95% confidence level, LSC for AP Spine = 0.022 g/cm2, LSC for Total Hip = 0.027 g/cm2 # Denotes dissimilar scan types or analysis methods Clinical Information Provided by Patient: Parent has had a hip fracture Has used the following medications: Vitamin D, Calcium Patient maximum height was 62 Menopause Age: 59 No regular weight bearing exercise Drinks caffeinated beverages Onset of menses at age 11 Number of children 0 Impression: The patient has low bone mass, based on the Right Total Hip T-score. The patient has an estimated ten-year risk of hip fracture of 7.6% and an estimated ten-year risk of major fracture of 16%, based on the WHO FRAX algorithm. The patient has risk factors, including: parental hip fracture. The BMD for the AP Spine (L1-L4) decreased, changing by -4.5% since the last DXA exam. The BMD for the Total Hip(Left) decreased, changing by -4.5% since the last DXA exam. The BMD for the Total Hip(Right) decreased, changing by -3.9% since the last DXA exam. Discussion: BONE DENSITY IS LOW AT ONE OR MORE SKELETAL SITES. THE PATIENT'S BMD AND CLINICAL RISK FACTORS CONTRIBUTE TO THIS PATIENT'S INCREASED RISK OF FRACTURE. This patient's lowest T-score is low at one or more skeletal sites. It meets the World Health Organization's (WHO) criteria for ?low bone mass? (T-score between -1.0 and -2.5). The patient's 10-year risk of hip fracture as calculated by FRAX exceeds the threshold where pharmacological therapy is recommended by the National Osteoporosis Foundation (NOF). However, all treatment decisions require clinical judgment and consideration of individual patient factors, including patient preferences, comorbidities, previous drug use, risk factors not captured in the FRAX model (e.g., frailty, falls, vitamin D deficiency, increased bone turnover, interval significant decline in bone density) and possible under or overestimation of fracture risk by FRAX. The patient should follow a healthful lifestyle (good nutrition with adequate calcium and vitamin D, and appropriate weight-bearing exercise). Follow-Up: Consider a repeat BMD and Vertebral Fracture Assessment (VFA) exam in 2 years or sooner if medically necessary, to reassess this patient's status. Reported by: CRYSTAL on 11/02/2024 1:26:00 PM. Reviewed, dictated and finalized at location A.
== END 2024-11-02 12:54 | disposition home or self-care (01) ==
LOC: MICIMG 12:54
PROVIDERS: PCP Internal Medicine; Visit Provider Obstetrics & Gynecology
DX: M85.89 Other specified disorders of bone density and structure, multiple sites (principal); Z78.0 Asymptomatic menopausal state
CPT/HCPCS: 77080

== ENCOUNTER 2024-12-17 07:15 | Outpatient (CLI) | payer MEDICARE, SELFPAY ==
[2024-12-17 08:29] LABS: Alanine Aminotransferase 19 U/L (6-35); Albumin Level 4.5 g/dL (3.5-5.1); Alkaline Phosphatase 132 U/L (38-126); Anion Gap 8 mmol/L (4-12); Aspartate Amino Transferase 30 U/L (14-36); Bilirubin,Total 0.7 mg/dL (0.2-1.3); Blood Urea Nitrogen 23 mg/dL (7-17); Calcium 9.5 mg/dL (8.4-10.2); Carbon Dioxide 26 mmol/L (22-30); Chloride 105 mmol/L (98-107); Cholesterol 214 mg/dL (0-200); Estimated Glomerular Filt Rate > 60; Glucose 117 mg/dL (65-110); HDL Direct 66 mg/dL; Potassium 4.6 mmol/L (3.4-5.0); Sodium 139 mmol/L (137-145); Total Protein 7.3 g/dL (6.3-8.2); Triglycerides 55 mg/dL (<150)
[2024-12-17 08:46] LABS: Hemoglobin A1C 6.2 % (<5.7)
[2024-12-17 09:04] LABS: Thyroid Stimulating Hormone 2.130 uIU/mL (0.465-4.680)
[2024-12-17 09:57] LABS: Free T4 Free Thyroxine 1.06 ng/dL (0.78-2.19)
== END 2024-12-17 07:16 | disposition home or self-care (01) ==
LOC: ANHLAB 07:16
PROVIDERS: PCP Nurse Practitioner; Visit Provider Nurse Practitioner
DX: E78.5 Hyperlipidemia, unspecified (principal); E03.9 Hypothyroidism, unspecified; R73.9 Hyperglycemia, unspecified; E55.9 Vitamin D deficiency, unspecified
CPT/HCPCS: 36415; 80053; 80061; 82306; 83036; 84439; 84443